=== PATIENT | male | born 1970 | race Caucasian/White ===

== ENCOUNTER 2019-03-21 08:36 | Emergency (ER) | payer OTHER, SELFPAY ==
[2019-03-16 13:28] VITALS: BMI 24.8
[2019-03-21 08:38] VITALS: BP 126/82; PULSE 69; RESP 18; TEMP 36.6; O2SAT 100; BMI 25.2
--- NOTE | 2019-03-21 08:46 | CT_ITS ---
STUDY: CT ABDOMEN AND PELVIS WITH CONTRAST REASON FOR EXAM: Male, 48 years old. Shortness of breath and abdominal pain. RADIATION DOSAGE (If Supplied By Facility): CTDIvol = ( 11.30 ) mGy, DLP = ( 699.59 ) mGycm TECHNIQUE: Transaxial images were obtained from the dome of the diaphragm to the symphysis pubis without oral contrast. IV 100mL Isovue-300 100 was administered. Sagittal and coronal images were reconstructed. Individualized dose optimization techniques were used for this CT. COMPARISON: None. FINDINGS: The visualized lung bases are unremarkable. The visualized portions of the heart are within normal limits. Normal liver. There are surgical clips in the gallbladder fossa consistent with a prior cholecystectomy. Normal spleen. Normal pancreas. Normal bilateral adrenal glands. Normal right kidney. Normal left kidney. The stomach is somewhat distended. There are nonspecific fluid-filled small bowel loops. There is no evidence of bowel obstruction. There is diffuse thickening of the colon extending from the hepatic flexure to the region of the rectum. The appendix is visualized and appears to be within normal limits. Normal abdominal aorta. Normal inferior vena cava. Normal retroperitoneum. Normal urinary bladder. There is a very small umbilical hernia containing fat. There is no demonstrated acute osseous changes. CT/Abdomen/Pelvis W IV Cont ONLY IMPRESSION: 1. Diffuse thickening of the colon extending from the hepatic flexure to the rectum likely due to colitis. 2. Status post cholecystectomy. 3. No evidence of hydronephrosis Electronically Signed: Kristopher Luis MD at 10:41 EDT Tel , Service support ,
--- NOTE | 2019-03-21 08:54 | ED.VIS.GEN ---
History of Present Illness Chief Complaint: Abd Pain Informant: Patient Onset: Today Context: Sudden Onset Timing: Continuous Current Severity: Moderate Maximum Severity: Moderate Narrative: The patient presents to the emergency department abdominal pain. The patient has a history of duodenal ulcer. He underwent endoscopy in September which found this. There was also found to have a hiatal hernia. The patient states that he gets bouts of pain with squeezing in his midepigastric area and he will feel nauseated and have a few bouts of vomiting. He states he did vomit today and it seemed to help, but then the pain came back. He is following with Dr. Rodney. He is actually scheduled to have endoscopy with pH monitoring done next month. He states because of this, he had to stop his omeprazole and feels like it is making his pain worse. He denies any fevers. He denies any chills or sweats. He does have history of prior cholecystectomy but denies any other abdominal surgery. He states he did take 1 Percocet at home today with little improvement. Prior similar symptoms: Yes Recent Illness/Hospitalization: No Past Medical History - Allergies and Home Meds Allergies/Adverse Reactions: Allergies No Known Allergies Allergy (Verified 03/21/19 08:42) Primary Care Physician: Tonny Mcclelland MD [Primary Care Provider] - Prior records reviewed: Yes Surgical History: cholecystectomy Smoking Status: Never smoker Review of Systems General: Denies: Chills, Fever, Sweats Eyes: Denies: Visual changes - bilaterally, Diplopia ENT: Denies: Rhinorrhea, Sore throat Cardiovascular: Denies: Chest pain, Palpitations Respiratory: Denies: Dyspnea, Cough, Dyspnea on exertion Gastrointestinal: Reports: Abdominal pain, Nausea, Vomiting Genitourinary: Denies: Dysuria, Hematuria, Frequency Musculoskeletal: Denies: Back pain, Extremity Pain Skin: Denies: Rash, Wounds Neurological: Denies: Headache, Weakness, Numbness Physical Exam Vital Signs/Narrative: Vital Signs Temp Pulse Resp BP Pulse Ox 03/21/19 08:38 98 F 69 18 126/82 H 100 Inital Vital Signs reviewed: Yes General: Well nourished, Well developed, No Acute Distress Head: Normocephalic, Atraumatic Eyes: Perrl, EOMI ENT: Moist mucous membranes, No rhinorrhea Neck: Supple, Nontender Cardiovascular: Regular rate, Regular rhythm, No murmurs Respiratory: No distress, CTA bilaterally, Chest nontender Abdomen: Soft, Nondistended, Normal bowel sounds, Tender. Negative for: Guarding, Rebound tenderness Back: Nontender, Normal Inspection Extremities: Nontender, No edema Skin: Normal color, No rash Neurological: Alert, Oriented x3, Cranial nerves II-XII grossly intact, Normal Strength, Normal Sensation Psychological: Normal affect, Normal Mood Diagnostic/Tx/Re-eval Clinical Impression(s) from Imaging Studies Abdomen/Pelvis CT 03/21/19 08:46 IMPRESSION: 1. Diffuse thickening of the colon extending from the hepatic flexure to the rectum likely due to colitis. 2. Status post cholecystectomy. 3. No evidence of hydronephrosis Electronically Signed: Kristopher Luis MD at 10:41 EDT Tel , Service support , Abnormal Lab Results 03/21/19 03/21/19 08:55 08:55 WBC 7.8 RBC 4.91 Hgb 15.1 Hct 44.3 MCV 90.2 MCH 30.8 MCHC 34.1 RDW Std Deviation 41.8 RDW Coeff of Hannah 12.7 Plt Count 298 MPV 9.4 Immature Gran % (Auto) 0.300 Neut % (Auto) 67.3 Lymph % (Auto) 21.3 [place] % (Auto) 7.6 Eos % (Auto) 3.0 Baso % (Auto) 0.5 Absolute Neuts (auto) 5.3 Absolute Lymphs (auto) 1.66 Nucleated RBC % 0 Sodium 140 Potassium 4.2 Chloride 108 H Carbon Dioxide 25.0 Anion Gap 7 BUN 10 Creatinine 1.03 Estim Creat Clear Calc 91.38 Est GFR (MDRD) Af Amer 98 Est GFR (MDRD) Non-Af 81 BUN/Creatinine Ratio 9.7 L Glucose 112 H Calcium 9.8 Total Bilirubin 0.60 AST 14 L ALT 18 Alkaline Phosphatase 72 Total Protein 8.3 H Albumin 4.2 Globulin 4.1 Albumin/Globulin Ratio 1.0 Lipase 176 - Medical Decision Making IV was established. The patient was given analgesics and antiemetics. He had marked improvement of his pain and actually total resolution. His labs are unremarkable. His CT imaging shows mild colitis. He has had some constipation and pain with moving his bowels. I do feel that the most prudent thing would be to treat him with Cipro and Flagyl. He is comfortable with this plan of care. He will be given a short course of analgesics and will follow up with Dr. Rodney. He was counseled on concerning symptoms and reasons to return. He will be discharged home. Impression 1. Colitis 2. Left lower quadrant abdominal pain ED Disposition - Plan for ED Patient: Disposition: Home or Assisted Living Instructions: Diverticulitis Prescriptions: Ciprofloxacin [Cipro] 500 mg PO BID #14 tab Prescription Printed metroNIDAZOLE [Flagyl] 500 mg PO Q8H #21 tab Prescription Printed Oxycodone HCl/Acetaminophen [Percocet 5/325] 1 tab PO Q6H PRN PRN 3 Days #12 tab PRN Reason: Pain Prescription Printed Referrals: Tonny Mcclelland MD [Primary Care Provider] -
[2019-03-21] MEDS: Morphine 4 MG/ML Syringe IV (08:56)
[2019-03-21] MEDS: 0.9% Normal Saline 1,000 ML 1000 ML IV (08:56)
[2019-03-21] MEDS: proMETHazine 25 MG/ML Syringe 12.5 MG IV (08:56)
[2019-03-21 09:02] LABS: Absolute Lymphocyte Count 1.66 X10^3/uL (0.83-4.51); Absolute Neutrophil Count 5.3 X10^3/uL (2.0-7.7); Basophil# 0.04 X10^3/uL; Basophil% 0.5 % (0-1); Eosinophil# 0.23 X10^3/uL; Hematocrit 44.3 % (40-54); Hemoglobin 15.1 g/dL (13.0-16.5); Lymphocyte # 1.66 X10^3/ul (4.0); Lymphocyte % 21.3 % (19-41); Mean Corp Hgb Conc 34.1 g/dL (32-36); Mean Corpuscular Hgb 30.8 pg (27.0-32.0); Mean Corpuscular Volume 90.2 fL (80-94); Mean Platelet Vol. 9.4 fl (6.2-12.0); Monocyte# 0.59 X10^3/uL; Monocyte% 7.6 % (0-10); NRBC Flagged by Analyzer 0 % (0-5); Neutrophil # 5.25 X10^3/uL (2.7-7.7); Neutrophil % 67.3 % (47-70); Platelet Count 298 K/mm3 (150-450); RBC Distribution Width CV 12.7 % (11.6-14.6); RBC Distribution Width SD 41.8 fl (35.1-43.9); Red Blood Count 4.91 M/mm3 (4.6-6.2); White Blood Count 7.8 K/mm3 (4.4-11.0)
[2019-03-21 09:17] LABS: AST(SGOT) 14 U/L (15-37); Alanine Aminotransfer ALT/SGPT 18 U/L (16-61); Albumin, Serum 4.2 g/dL (3.2-5.0); Alkaline Phosphatase 72 U/L (45-117); Anion Gap 7 (5-15); BUN 10 mg/dL (7-18); BUN/Creat Ratio 9.7 RATIO (10-20); Calcium,Total 9.8 mg/dL (8.5-10.1); Chloride 108 mmol/L (98-107); Creatinine, Serum 1.03 mg/dL (0.70-1.30); EST Glomerular Filtration Rate 81 mL/min (>60); Est Glom Filt Rate - Afr Amer 98 mL/min (>60); Estimated Creatinine Clearance 91.38 ml/min; Globulin 4.1 g/dL (2.2-4.2); Glucose 112 mg/dL (74-106); Lipase 176 U/L (73-393); Potassium 4.2 mmol/L (3.5-5.1); Protein, Total 8.3 g/dL (6.4-8.2); Sodium Level 140 mmol/L (136-145)
[2019-03-21 10:36] VITALS: BP 135/76; PULSE 62; RESP 16; O2SAT 95
[2019-03-21 11:09] VITALS: BP 133/77; PULSE 54; RESP 14; O2SAT 97
== END 2019-03-21 11:10 | disposition home or self-care (01) ==
LOC: ED 08:57
PROVIDERS: Emergency Provider Emergency Medicine; Family Provider Family Medicine; PCP Family Medicine
DX: K52.9 Noninfective gastroenteritis and colitis, unspecified (principal); R10.32 Left lower quadrant pain; K44.9 Diaphragmatic hernia without obstruction or gangrene; Z87.11 Personal history of peptic ulcer disease; Z90.49 Acquired absence of other specified parts of digestive tract
CPT/HCPCS: 74177; 80053; 83690; 85025; 96361; 96374; 96375; 99285; Q9967

== ENCOUNTER 2019-03-23 05:18 | Observation (INO) | payer OTHER, SELFPAY ==
[2019-03-23] VITALS (17 sets, daily range): BP systolic 86–167; BP diastolic 48–116; PULSE 59–91; RESP 13–28; TEMP 36.3–37.1; O2SAT 92–100; BMI 23.7; BMI 24.0
--- NOTE | 2019-03-23 05:28 | EKG12_ITS ---
Test Reason : ABD PAIN Blood Pressure : / mmHG Vent. Rate : 071 BPM Atrial Rate : 071 BPM P-R Int : 122 ms QRS Dur : 098 ms QT Int : 448 ms P-R-T Axes : 042 068 057 degrees QTc Int : 486 ms Normal sinus rhythm Possible Anterior infarct , age undetermined Abnormal ECG Confirmed by AMILCAR GARDUNO, EMERSON ([id number]), industrial editor JONY HANNA ([id number]) on 03/27/2019 10:27:33 AM Referred By: LILIYA Confirmed By:EMERSON FITZGERALD MD
--- NOTE | 2019-03-23 05:29 | RAD_ITS ---
STUDY: X-RAY CHEST REASON FOR EXAM: Male, 48 years old. Chest pain TECHNIQUE: Single AP portable view of the chest. COMPARISON: None. FINDINGS: The lungs are clear and expanded. There is no demonstrated pleural abnormality. Normal size heart. Normal mediastinum and chris. Normal visualized pulmonary arteries. Normal visualized aortic arch and descending thoracic aorta. Normal visualized thoracic spine. Normal visualized ribs, clavicles, and shoulders. There is no demonstrated abnormality of the visualized soft tissue structures of the upper abdomen. RAD/Chest 1 View (Portable) IMPRESSION: Normal x-ray examination of the chest. Electronically Signed: Jose Cade, at 6:47 EDT Tel , Service support ,
--- NOTE | 2019-03-23 05:33 | ED.VIS.GEN ---
History of Present Illness Chief Complaint: Abd Pain Informant: Patient Onset: Today Context: Sudden Onset Timing: Continuous Current Severity: Severe Maximum Severity: Severe Narrative: Patient is a 48-year-old male with history of GERD and cholecystectomy presenting with acute abdominal pain. Patient was seen in the ER a little over a day ago for similar pain. At that time he was diagnosed with colitis. He was discharged home on antibiotics. Patient states around 3 AM he woke up from sleep with severe abdominal pain. It is diffuse. He has a hard time describing it. Patient states he is thrown up once and also had diarrhea. Feels that he needs to have a bowel movements currently. Patient denies any black or blood in his vomit or his stool. He denies any associated chest pain or difficulty breathing. He states he is in immense pain is having a hard time finding a position of comfort. Patient has a follow-up appointment with Dr. Rodney scheduled for 04/08/2019 Past Medical History - Allergies and Home Meds Allergies/Adverse Reactions: Allergies No Known Allergies Allergy (Verified 03/23/19 05:22) Past Medical History: - - Depression, stomach ulcer Surgical History: cholecystectomy Smoking Status: Current every day smoker Review of Systems All systems negative except as indicated General: Reports: Sweats Gastrointestinal: Reports: Abdominal pain, Nausea, Vomiting, Diarrhea Physical Exam Vital Signs/Narrative: Vital Signs Temp Pulse Resp BP Pulse Ox 03/23/19 05:23 91 97 03/23/19 05:18 97.4 F L 83 28 H 167/96 H 92 Inital Vital Signs reviewed: Yes General: Well nourished, Well developed, Acute Distress - Secondary to pain, patient writhing in the bed Head: Normocephalic, Atraumatic Eyes: Perrl, EOMI ENT: Moist mucous membranes, No rhinorrhea Neck: Supple, Nontender Cardiovascular: Regular rate, Regular rhythm, No murmurs Respiratory: No distress, CTA bilaterally, Chest nontender Abdomen: Soft, Nondistended, No masses, Tender - Diffuse, Hypoactive bowel sounds. Negative for: Guarding, Rebound tenderness Extremities: Nontender, No edema Skin: Normal color, No rash, Diaphoresis Neurological: Alert, Oriented x3, Cranial nerves II-XII grossly intact, Normal Strength, Normal Sensation Psychological: Normal affect, Normal Mood Diagnostic/Tx/Re-eval - Rhythm Strip Rhythm Strip: Sinus Tach Rate: 110 Ectopy: None - EKG Initial EKG Interpretation: Sinus Rhythm, - - Sinus rhythm at a rate of 71 Normal intervals Normal axis No obvious ST segment changes Significant baseline artifact secondary to movement - Medical Decision Making Patient is a 48-year-old male with history of gastric ulcer disease presenting with severe abdominal pain. Patient's abdomen is difficult to examine secondary to his pain and guarding however it is soft. He is not peritoneal however he is concerning for pain out of proportion. Patient is initially tachycardic and tachypneic. He requires multiple doses of IV pain medication just to tolerate EKG and chest x-ray. Lab work shows mild elevated lactic acid as well as a mildly elevated lipase. CBC shows a mildly elevated CBC. All this is quite nonspecific. Patient was recently diagnosed with colitis, 2 days ago, however repeat CT shows no acute abnormality. Patient requires multiple re-doses of pain medication. He was given IV fluids. He finally has some improvement of his tachycardia and tachypnea however abdominal exam is still difficult secondary to pain. Patient does not have any blood in his stool or significant diarrhea. Have a less likely suspicion for C. difficile or mesenteric ischemia. Patient will be admitted for further evaluation of his intractable abdominal pain. Case is discussed with admitting physician, Dr. Paula as well as his surgeon, Dr. Rodney. Patient is agreeable with admission. He is hemodynamically stable at time of disposition. ED Disposition - Plan for ED Patient: Disposition: Acute Care [facility] Diagnosis: Intractable generalized abdominal pain, Elevated lactic acid level, Elevated lipase, Nausea and vomiting
[2019-03-23] MEDS: Ondansetron 4 MG/2 ML Vial IV (05:35)
[2019-03-23] MEDS: HYDROmorphone 1 MG/ML Syringe IV ×2 (05:35→05:56)
[2019-03-23] MEDS: 0.9% Normal Saline 1,000 ML 1000 ML IV (05:35)
--- NOTE | 2019-03-23 05:38 | ED.RN ---
NO OLD EKGS IN MUSE
--- NOTE | 2019-03-23 05:39 | CT_ITS ---
STUDY: CT ABDOMEN AND PELVIS WITHOUT CONTRAST REASON FOR EXAM: Male, 48 years old. Severe lower abdominal pain RADIATION DOSAGE (If Supplied By Facility): CTDIvol = ( 13.22 ) mGy, DLP = ( 1046.76 ) mGycm TECHNIQUE: Transaxial images were obtained from the dome of the diaphragm to the symphysis pubis without oral contrast, and without intravenous contrast. Sagittal and coronal images were reconstructed. Individualized dose optimization techniques were used for this CT. COMPARISON: None. FINDINGS: The visualized lung bases are unremarkable. The visualized portions of the heart are within normal limits. Normal liver. There are surgical clips in the gallbladder fossa consistent with a prior cholecystectomy. Normal spleen. Normal pancreas. Normal bilateral adrenal glands. Normal right kidney. Normal left kidney. Normal visualized stomach. Normal small intestine. Normal colon. The appendix is visualized and appears normal. Normal abdominal aorta. Normal inferior vena cava. Normal retroperitoneum. Normal urinary bladder. Normal abdominal wall. Normal osseous structures. CT/Abdomen/Pelvis W IV Cont ONLY IMPRESSION: Normal unenhanced CT of the abdomen and pelvis. Electronically Signed: Jose Cade, at 7:21 EDT Tel , Service support ,
[2019-03-23 05:51] LABS: Absolute Lymphocyte Count 2.59 X10^3/uL (0.83-4.51); Absolute Neutrophil Count 8.2 X10^3/uL (2.0-7.7); Basophil# 0.09 X10^3/uL; Basophil% 0.8 % (0-1); Eosinophil# 0.24 X10^3/uL; Hematocrit 42.4 % (40-54); Lymphocyte # 2.59 X10^3/ul (4.0); Lymphocyte % 21.8 % (19-41); Mean Corpuscular Hgb 30.2 pg (27.0-32.0); Mean Corpuscular Volume 91.6 fL (80-94); Mean Platelet Vol. 9.7 fl (6.2-12.0); Monocyte# 0.78 X10^3/uL; Monocyte% 6.6 % (0-10); NRBC Flagged by Analyzer 0 % (0-5); Neutrophil # 8.16 X10^3/uL (2.7-7.7); Neutrophil % 68.5 % (47-70); Platelet Count 308 K/mm3 (150-450); RBC Distribution Width CV 12.6 % (11.6-14.6); RBC Distribution Width SD 42.3 fl (35.1-43.9); Red Blood Count 4.63 M/mm3 (4.6-6.2); White Blood Count 11.9 K/mm3 (4.4-11.0)
[2019-03-23] MEDS: fentaNYL 100 MCG/2 ML Ampul 50 MCG IV ×2 (06:13→06:28)
[2019-03-23 06:14] LABS: AST(SGOT) 18 U/L (15-37); Alanine Aminotransfer ALT/SGPT 38 U/L (16-61); Albumin, Serum 4.1 g/dL (3.2-5.0); Alkaline Phosphatase 90 U/L (45-117); Anion Gap 9 (5-15); BUN 11 mg/dL (7-18); BUN/Creat Ratio 9.8 RATIO (10-20); Bilirubin, Direct 0.14 mg/dL (0.00-0.30); Calcium,Total 9.3 mg/dL (8.5-10.1); Chloride 108 mmol/L (98-107); Creatinine, Serum 1.12 mg/dL (0.70-1.30); EST Glomerular Filtration Rate 74 mL/min (>60); Est Glom Filt Rate - Afr Amer 89 mL/min (>60); Estimated Creatinine Clearance 84.04 ml/min; Globulin 3.9 g/dL (2.2-4.2); Glucose 206 mg/dL (74-106); Lipase 622 U/L (73-393); Potassium 3.7 mmol/L (3.5-5.1); Sodium Level 142 mmol/L (136-145)
--- NOTE | 2019-03-23 06:18 | ED.RN ---
DR STEPHENS NOTIFIED OF LACTIC ACID RESULTS
[2019-03-23 06:19] LABS: Lactic Acid 2.8 mmol/L (0.4-2.0)
[2019-03-23] MEDS: Morphine 4 MG/ML Syringe IV (07:20)
[2019-03-23] MEDS: fentaNYL 100 MCG/2 ML Ampul 75 MCG IV (08:14)
[2019-03-23] MEDS: 0.9% Normal Saline 1,000 ML 999 ML IV (08:18)
--- NOTE | 2019-03-23 08:50 | PCM.HP.STD ---
Problem List (1) Intractable generalized abdominal pain Status: Acute (2) Elevated lactic acid level Status: Acute (3) Elevated lipase Status: Acute (4) Nausea and vomiting Status: Acute History of Present Illness Date of Admission: 03/23/19 Chief Complaint: Abdominal pain associated with diarrhea and vomiting The patient is a 48 year old M with a past medical history of abdominal pain for the past 10 to 12 years, cannabis use and peptic ulcer disease who presented to the emergency department at [facility] on 03/23/2019 complaining of severe abdominal pain associated with vomiting and diarrhea that woke him from sleep at 3 AM. When he went to bed he had no complaints. Abdominal pain is worse in the lower abdomen and it radiates to the low back. He tells me that he has had abdominal pain every day for the past 10-12 years and he used to take Percocet but, he was cut off 3 years ago. The vomitus is bilious. Stool has no fecal leukocytes and is negative for blood. C. difficile is negative. He was also seen in the ED on 03/21/[address] Holt. At that time he c/o a hx of duodenal ulcer. Today he tells me he does not know where the ulcer was on EGD done in [place] [address] Jackson. He also tells me that he had a colonoscopy and he does not know the results. He told Dr. Rodney he had a esophageal ulcer. There is no FH of IBD. Mother from pancreatic Cancer but also had colon CA. He denies any illicit drug use other than marijuana. Tells me that he doses not like to take narcotics. Denies Meth. Admitted to using cocaine many years ago. Vital signs at presentation to the emergency department were temperature 97.4, pulse rate 83, blood pressure 167/96, respiratory rate 28 and he was 92 to 100% saturated on room air. White blood cell count was mildly increased at 11.9 but the differential was within normal limits. Hemoglobin and platelets were normal. PT and PTT were normal. BMP was unremarkable. Random glucose was 206 but the hemoglobin A1c is 5.3. Lactic acid was 2.8 but the recheck was 2.0. LFTs were unremarkable. Amylase was mildly increased at 121 but a recheck a few hours later was normal at 64. Triglycerides are 40. Lipase was 622 and he denies any history of chronic pancreatitis. He also denies any EtOH use. CT scan of the abdomen and pelvis was done and although it says unenhanced I was assured by the certified surgical technologist that he did receive IV contrast only. The CT scan was normal. When he eats dairy or bread then he gets increased abdominal pain and bloating. He still eats rye bread which he states he tolerates OK. He ate cheese yesterday. Past Medical History Medical History: Medical History (Last Reviewed 03/23/19 @ 20:13 by Liliana Paula DO) Abdominal pain R10.9 Arthritis M19.90 Asthma J45.909 Depression with anxiety F41.8 History of back problems Stomach ulcer K25.9 Weight loss R63.4 Allergies No Known Allergies Allergy (Verified 03/23/19 05:22) Home Medications: Ambulatory Orders Medication Instructions Recorded bupropion HCl SR 150 mg tablet,12 300 mg PO DAILY 03/16/19 hr sustained-release escitalopram 10 mg tablet 10 mg PO DAILY 03/16/19 hyoscyamine sulfate 0.125 mg tablet 0.125 mg PO DAILY PRN tab 03/16/19 loratadine 10 mg tablet 10 mg PO DAILY 03/16/19 trazodone 100 mg tablet 100 mg PO DAILY 03/16/19 Ciprofloxacin [Cipro] 500 mg PO BID #14 tab 03/21/19 Oxycodone HCl/Acetaminophen 1 tab PO Q6H PRN PRN 3 Days #12 tab 03/21/19 [Percocet 5/325] Surgical History: Surgical History (Last Reviewed 03/23/19 @ 20:13 by Liliana Paula DO) History of laparoscopic cholecystectomy Z90.49 Surgical History: cholecystectomy Psychiatric History: Depression - on Wellbutrin Lives: Spouse/ Significant Other Smoking Status: Current every day smoker Tobacco Use: - - Marijuana Alcohol: None - except the moonshine that is in the cough syrup he makes Drugs: Marijuana - *Family History Maternal Family History: Family History (Last Reviewed 03/23/19 @ 20:14 by Liliana Paula DO) Mother Asthma Colon cancer Diabetes Hypertension Thyroid disorder Grandfather Colon cancer Father Diabetes Hypertension History Items: Cancer - his mother had both colon and pancreatitic CA Paternal Family History: Family History (Last Reviewed 03/23/19 @ 20:14 by Liliana Paula DO) Mother Asthma Colon cancer Diabetes Hypertension Thyroid disorder Grandfather Colon cancer Father Diabetes Hypertension Review of Systems Constitutional: Denies: Anorexia, Chills, Fever, Night Sweats, Weakness Eyes: Denies: Blurred vision HEENT: Denies: Head Aches, Sinus Congestion, Sinus Drainage Cardiovascular: Denies: Chest Pain, Edema, Light Headedness, Palpitations Respiratory: Denies: Cough, Shortness of breath at rest, Shortness of breath upon exertion, Sputum production Gastrointestinal: Reports: Abdominal Pain - mostly in the lower abdomen, Nausea, Vomiting Genitourinary: Denies: Dysuria, Frequency, Hesitancy Musculoskeletal: Reports: Back Pain - inassociation with the abd pain. Denies: Joint Pain, Joint Tenderness Skin: Denies: Rash, Wounds Neurological: Denies: Numbness, Tingling, Focal weakness Psychiatric: Reports: Anxiety, Depression. Denies: Homicidal Ideations, Suicidal Ideations Endocrine: Reports: Change in Body Habitus - he has lost about 20 lbs over the past year due to eating a better diet and trying elimination diet to try and figure out why he has abdominal pain. Denies: Heat/ Cold Intolerance Hematologic/ Lymphatic: Denies: Easy Bruising, Easy Bleeding, Hx of blood clot VTE Information - Inpt Only VTE Present on Admission: No VTE Mechan Device Prophylaxis: SCD's, Knee High DEANDRE Hose VTE Pharm Prophylaxis ordered?: Yes Patient Problems: Active and Suspected Problems (Last Reviewed 03/23/19 @ 20:13 by Liliana Paula DO) Intractable generalized abdominal pain (Acute) Elevated lactic acid level (Acute) Elevated lipase (Acute) Nausea and vomiting (Acute) - Physical Exam General: Alert, Oriented x3, Cooperative, - - he is appears to be in severe pain....he is restless and moving all over the bed. He periodically draw his knees up to his chest and he is moaning constantly. HEENT: Atraumatic, PERRLA, EOMI, Normocephalic Oral: Dry Mucosa Neck: Supple, No JVD, Negative Carotid Bruits, No Nodes, Trachea Midline Lungs: Clear to auscultation, Normal air movement Cardiovascular: Regular rate, Regular Rhythm, Normal S1, Normal S2, No murmurs, No rub noted, No Gallop Abdomen: Soft, Hypoactive Bowel Sounds, Tender - diffusely tender to palpation in the lower abdomen but, his abd is soft. He tells me the pain increases with palpation but, he does not guard. Extremities: No clubbing, No cyanosis, No edema, Capillary Refill Less than 3 Seconds, No Calf Tenderness, Peripheral Pulses Normal, - - he has soft bruits over both femoral arteries. No abd bruits. Skin: No rashes, No breakdown Musculoskeletal: No Tenderness to Palpation of Joints or Extremities, No Muscle Wasting Neurological: Cranial nerves II-XII grossly intact, Neuro grossly intact Psych/Mental Status: Appropriate, Anxious - crying, tells me he is afraid. Vital Signs Temp Pulse Resp BP Pulse Ox 97.4 F L 69 17 151/66 H 99 03/23/19 05:18 03/23/19 08:00 03/23/19 08:00 03/23/19 08:00 03/23/19 08:00 Oxygen Delivery Method Room Air Weight: 173 lb 11.588 oz Body Mass Index (BMI) 23.7 Intake and Output for Last 24 Hours 03/21/19 03/22/19 03/23/19 23:59 23:59 23:59 Intake Total 1000 / 1000 Balance 1000 / 1000 Microbiology Past 72 Hours 03/23/19 05:42 C. difficile DNA Amplification - Final Stool 03/23/19 05:35 Stool Occult Blood (MILLIE) - Final Stool 03/23/19 05:42 Stool Lactoferrin - Final Stool Laboratory Tests Past 24 Hrs 03/23/19 03/23/19 03/23/19 05:35 05:35 05:35 WBC 11.9 H RBC 4.63 Hgb 14.0 Hct 42.4 MCV 91.6 MCH 30.2 MCHC 33.0 RDW Std Deviation 42.3 RDW Coeff of Hannah 12.6 Plt Count 308 MPV 9.7 Immature Gran % (Auto) 0.300 Neut % (Auto) 68.5 Lymph % (Auto) 21.8 [place] % (Auto) 6.6 Eos % (Auto) 2.0 Baso % (Auto) 0.8 Absolute Neuts (auto) 8.2 H Absolute Lymphs (auto) 2.59 Nucleated RBC % 0 Sodium 142 Potassium 3.7 Chloride 108 H Carbon Dioxide 25.0 Anion Gap 9 BUN 11 Creatinine 1.12 Estim Creat Clear Calc 84.04 Est GFR (MDRD) Af Amer 89 Est GFR (MDRD) Non-Af 74 BUN/Creatinine Ratio 9.8 L Glucose 206 H Lactic Acid 2.8 H Calcium 9.3 Total Bilirubin 0.60 Direct Bilirubin 0.14 AST 18 ALT 38 Alkaline Phosphatase 90 Troponin I < 0.015 Total Protein 8.0 Albumin 4.1 Globulin 3.9 Amylase Lipase 622 H 03/23/19 05:35 WBC RBC Hgb Hct MCV MCH MCHC RDW Std Deviation RDW Coeff of Hannah Plt Count MPV Immature Gran % (Auto) Neut % (Auto) Lymph % (Auto) [place] % (Auto) Eos % (Auto) Baso % (Auto) Absolute Neuts (auto) Absolute Lymphs (auto) Nucleated RBC % Sodium Potassium Chloride Carbon Dioxide Anion Gap BUN Creatinine Estim Creat Clear Calc Est GFR (MDRD) Af Amer Est GFR (MDRD) Non-Af BUN/Creatinine Ratio Glucose Lactic Acid Calcium Total Bilirubin Direct Bilirubin AST ALT Alkaline Phosphatase Troponin I Total Protein Albumin Globulin Amylase Pending Lipase Assessment/Plan All Active Problems (Last Reviewed 03/23/19 @ 20:13 by Liliana Paula DO) Intractable generalized abdominal pain (Acute) Elevated lactic acid level (Acute) Elevated lipase (Acute) Nausea and vomiting (Acute) Impressions 1. severe abdominal pain associated with nausea and emesis on chronic abdominal pain for 10-12 years. Previously on Percocet but, cut off 3 years ago. No physical or lab abnormalities to support this degree of pain. Dr. Rodney has been consulted. 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 ? overlyng mental health disorder? possible ischemic bowel? Gluten sensitive enteropathy? lactose intolerance? no evidenc on the CT of the abdomen for IBD. IBS? W/U in progress. Porphyria? 2. Lactic acidosis - suspect due to dehydration from the vomiting. Vomitus has the appearance of bile. Has had a cholecystectomy in the past. 3. daily marijuana use. 4. elevated lipase is most likely due to vomiting and not to acute pancreatitis. The pancreas appears normal on the CT scan. check TRIG 5. hyperglycemia - likely due to stress. HGBA1C is normal 6. BL femoral bruits - no sx of claudication 7. ? 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 Await Dr. Ronel's consult. Code Visit Inpatient E&M: 58602 Init Hosp L3
--- NOTE | 2019-03-23 08:52 | CON.PCM_ITS ---
Problem List (1) Intractable generalized abdominal pain Status: Acute (2) Elevated lactic acid level Status: Acute (3) Elevated lipase Status: Acute (4) Nausea and vomiting Status: Acute Reason for Consult Date of Consultation: 03/23/19 History of Present Illness: The patient is a 48 year old M who presented with a 2 day history of worsening abdominal pain. Patient stated he was evaluated by Dr. Rodney last Saturday for a follow-up EGD. Patient has a history of peptic ulcer disease for which he had an upper scope last September. A 1 cm ulcer was found per patient in his esophagus. Patient was placed on omeprazole and has been taking this regularly since that procedure. Patient was told to stop the medication which he did last Saturday in preparation for a scheduled EGD with pH probe. Patient states since that time he has developed this abdominal pain. He also noted nausea and vomiting which has been intermittent for the last 10 years. Patient has noted an increase in diarrhea over the last 3 days. He was evaluated in the ED on 02/19/19. A CT scan of the ab/pel was obtained which demonstrated colitis. He was placed on Cipro and Flagyl and given narcotic pain medication and discharged to home. Patient had a repeat CT scan of the ab/pel which demonstrated unremarkable imaging. Patient does utilize illicit drugs daily. Past Medical History Medical History: Medical History (Last Reviewed 03/23/19 @ 10:06 by Michelle Rock PA-C) Abdominal pain R10.9 Arthritis M19.90 Asthma J45.909 Depression with anxiety F41.8 History of back problems Stomach ulcer K25.9 Weight loss R63.4 Allergies No Known Allergies Allergy (Verified 03/23/19 05:22) Home Medications: Ambulatory Orders Medication Instructions Recorded bupropion HCl SR 150 mg tablet,12 300 mg PO DAILY 03/16/19 hr sustained-release escitalopram 10 mg tablet 10 mg PO DAILY 03/16/19 hyoscyamine sulfate 0.125 mg tablet 0.125 mg PO DAILY tab 03/16/19 loratadine 10 mg tablet 10 mg PO DAILY 03/16/19 omeprazole 20 mg capsule,delayed 20 mg PO DAILY 03/16/19 release trazodone 100 mg tablet 100 mg PO DAILY 03/16/19 Ciprofloxacin [Cipro] 500 mg PO BID #14 tab 03/21/19 Oxycodone HCl/Acetaminophen 1 tab PO Q6H PRN PRN 3 Days #12 tab 03/21/19 [Percocet 5/325] metroNIDAZOLE [Flagyl] 500 mg PO Q8H #21 tab 03/21/19 Surgical History: Surgical History (Last Reviewed 03/23/19 @ 10:06 by Michelle Rock PA-C) History of laparoscopic cholecystectomy Z90.49 Surgical History: cholecystectomy, - - All top teeth surgically removed Psychiatric History: No pertinent psych hx Smoking Status: Current every day smoker Tobacco Use: Cigarettes Drugs: Marijuana - daily - *Family History Maternal Family History: Family History (Last Reviewed 03/23/19 @ 10:07 by Michelle Rock PA-C) Mother Asthma Colon cancer Diabetes Hypertension Thyroid disorder Grandfather Colon cancer Father Diabetes Hypertension Paternal Family History: Family History (Last Reviewed 03/23/19 @ 10:07 by Michelle Rock PA-C) Mother Asthma Colon cancer Diabetes Hypertension Thyroid disorder Grandfather Colon cancer Father Diabetes Hypertension Review of Systems Constitutional: Reports: Anorexia HEENT: Denies: Head Aches, Sinus Congestion, Sinus Drainage Cardiovascular: Denies: Chest Pain, Palpitations Respiratory: Denies: Cough, Shortness of breath at rest, Sputum production Gastrointestinal: Reports: Abdominal Pain, Diarrhea, Nausea, Vomiting Genitourinary: Denies: Dysuria Musculoskeletal: Denies: Joint Pain, Joint Tenderness Skin: Denies: Rash, Wounds Neurological: Denies: Numbness, Tingling, Focal weakness Psychiatric: Denies: Anxiety, Depression, Homicidal Ideations, Suicidal Ideations Hematologic/ Lymphatic: Denies: Easy Bruising, Easy Bleeding Patient Problems: Active and Suspected Problems (Last Reviewed 03/19/19 @ 11:23 by Bk Rodney MD) Intractable generalized abdominal pain (Acute) Elevated lactic acid level (Acute) Elevated lipase (Acute) Nausea and vomiting (Acute) - Physical Exam General: Alert, Oriented x3, Cooperative HEENT: Atraumatic, PERRLA, EOMI, Normocephalic Neck: Supple, No JVD, Negative Carotid Bruits Lungs: Clear to auscultation, Normal air movement Cardiovascular: Regular rate, No murmurs Abdomen: Hypoactive Bowel Sounds, Tender - Severe, generalized, - - Pain out of proportion Extremities: No edema, Capillary Refill Less than 3 Seconds Skin: No rashes, No breakdown Musculoskeletal: No Tenderness to Palpation of Joints or Extremities Neurological: Neuro grossly intact Psych/Mental Status: Normal Affect, Appropriate Vital Signs Temp Pulse Resp BP Pulse Ox 97.4 F L 69 17 151/66 H 99 03/23/19 05:18 03/23/19 08:00 03/23/19 08:00 03/23/19 08:00 03/23/19 08:00 Oxygen Delivery Method Room Air Weight: 173 lb 11.588 oz Body Mass Index (BMI) 23.7 Intake and Output for Last 24 Hours 03/21/19 03/22/19 03/23/19 23:59 23:59 23:59 Intake Total 1000 / 1000 Balance 1000 / 1000 Microbiology Past 72 Hours 03/23/19 05:42 C. difficile DNA Amplification - Final Stool 03/23/19 05:35 Stool Occult Blood (MILLIE) - Final Stool 03/23/19 05:42 Stool Lactoferrin - Final Stool Laboratory Tests Past 24 Hrs 03/23/19 03/23/19 03/23/19 05:35 05:35 05:35 WBC 11.9 H RBC 4.63 Hgb 14.0 Hct 42.4 MCV 91.6 MCH 30.2 MCHC 33.0 RDW Std Deviation 42.3 RDW Coeff of Hannah 12.6 Plt Count 308 MPV 9.7 Immature Gran % (Auto) 0.300 Neut % (Auto) 68.5 Lymph % (Auto) 21.8 [place] % (Auto) 6.6 Eos % (Auto) 2.0 Baso % (Auto) 0.8 Absolute Neuts (auto) 8.2 H Absolute Lymphs (auto) 2.59 Nucleated RBC % 0 Sodium 142 Potassium 3.7 Chloride 108 H Carbon Dioxide 25.0 Anion Gap 9 BUN 11 Creatinine 1.12 Estim Creat Clear Calc 84.04 Est GFR (MDRD) Af Amer 89 Est GFR (MDRD) Non-Af 74 BUN/Creatinine Ratio 9.8 L Glucose 206 H Lactic Acid 2.8 H Calcium 9.3 Total Bilirubin 0.60 Direct Bilirubin 0.14 AST 18 ALT 38 Alkaline Phosphatase 90 Troponin I < 0.015 Total Protein 8.0 Albumin 4.1 Globulin 3.9 Amylase Lipase 622 H 03/23/19 05:35 WBC RBC Hgb Hct MCV MCH MCHC RDW Std Deviation RDW Coeff of Hannah Plt Count MPV Immature Gran % (Auto) Neut % (Auto) Lymph % (Auto) [place] % (Auto) Eos % (Auto) Baso % (Auto) Absolute Neuts (auto) Absolute Lymphs (auto) Nucleated RBC % Sodium Potassium Chloride Carbon Dioxide Anion Gap BUN Creatinine Estim Creat Clear Calc Est GFR (MDRD) Af Amer Est GFR (MDRD) Non-Af BUN/Creatinine Ratio Glucose Lactic Acid Calcium Total Bilirubin Direct Bilirubin AST ALT Alkaline Phosphatase Troponin I Total Protein Albumin Globulin Amylase Pending Lipase Assessment/Plan All Active Problems (Last Reviewed 03/19/19 @ 11:23 by Bk Rodney MD) Intractable generalized abdominal pain (Acute) Elevated lactic acid level (Acute) Elevated lipase (Acute) Nausea and vomiting (Acute) I have been consulted in conjunction with Dr. Rodney. Impression: Severe abdominal pain. Plan: I have discussed this patient with Dr. Rodney. Dr. Rodney will plan to perform an upper scope with possible biopsies. Procedure details, risks and benefits have been explained the procedure. Patient and his family have had the opportunity to ask and have questions answered. Patient verbally understands and agrees with the plan. Dr. Rodney will plan to perform an upper scope today. Thank you for allowing us to participate in this patient's care. Code Visit Office Visits / Consults: [id number] IP Consult L3
[2019-03-23 08:57] LABS: Amylase 121 U/L (25-115)
[2019-03-23 09:22] LABS: Prothrombin Time (Protime)PT. 12.7 SECONDS (11.7-14.9)
[2019-03-23 09:23] LABS: Partial Thromboplast Time 28.6 Seconds (24.1-36.2)
[2019-03-23 09:27] LABS: Erythrocyte Sedimentation Rate 19 mm/hr (0-20)
--- NOTE | 2019-03-23 09:43 | OP.ENDO_ITS ---
03/23/2019 Tonny Mcclelland Md Re : Upper GI endoscopy procedure for Lamar Ashraf Stas This procedure was performed on Saturday, March 23, 2019. My impressions and recommendations are as follows: Impressions : - Normal esophagus. No specimens collected. - Erythematous mucosa in the prepyloric region of the stomach. Biopsied. - Normal examined duodenum. No specimens collected. Recommendations : - Await pathology results. - Repeat upper endoscopy at appointment to be scheduled for surveillance. - Return patient to hospital [facility] for ongoing care. - Clear liquid diet today. - Continue present medications. - Await pathology results. My findings are described in the full procedure note, which is enclosed. If I can be of further assistance, please feel free to contact me at Doctor phone number(s): , Fax: [phone], Work: . Sincerely, MD Bk Bernardo MD 03/23/2019 9:43:18 AM This report has been signed electronically.
[2019-03-23] MEDS: 0.9% Normal Saline 1,000 ML 250 ML IV (09:45)
[2019-03-23 09:47] LABS: Reflex Lactate? Y
[2019-03-23 09:48] LABS: Hemoglobin A1c 5.3 % (4.2-6.3)
--- NOTE | 2019-03-23 09:50 | EGD_PTH ---
PATIENT: MELA ARRINGTON LOC: MS3 U#:[id number] AGE/SX: 48/M ROOM: MS314 RE03/23/[address]: Dr. Liliana Paula DO : 1970 BED: 1 DIS: 03/26/2019 SPEC #: [id number] RECD: 03/23/19 10:11 STATUS: LESTER DUVALL #: [id number] LINA: 03/23/19 09:[address]: Bk Rodney DEPT: SURGICAL PATHOLOGY RECD BY: Harini Carter ENTERED: 03/23/19 10:38 SP TYPE: EGD BIOPSY OTHR DR: DO Dr. Tonny Lomeli MD Tissues: Gastric mucous membrane Procedures: Surgery Specimen Level IV HEADER OPERATION: [place] [place] DIAGNOSIS: Severe abdominal pain, ulcer TISSUE SUBMITTED: Antral biopsy for histo and H. pylori MICROSCOPIC DIAGNOSIS Antral biopsy: Mild gastritis. See microscopic description and comment. KEMAL:vipin 03/24/19 COMMENT The results of immunohistochemistry for Helicobacter pylori will be reported separately ([id number]). MICROSCOPIC DESCRIPTION Slides are reviewed. The specimen shows fragments of gastric mucosa with chronic inflammatory cell infiltrates in the lamina propria consisting of lymphocytes and plasma cells, consistent with mild chronic gastritis. GROSS DESCRIPTION Received in fixative is one container labeled with the patient's name and designated antral biopsy. The specimen consists of one irregular fragment of light corona soft tissue that measures 0.3 x 0.3 x 0.1 cm. The specimen is totally submitted in one cassette. / KEMAL:vipin 03/23/19 TC:3 CPT: 76300
--- NOTE | 2019-03-23 09:50 | IMM_PTH ---
PATIENT: MELA ARRINGTON LOC: MS3 U#:[id number] AGE/SX: 48/M ROOM: PR314 RE03/23/[address]: Dr. Liliana Paula DO : 1970 BED: 1 DIS: 03/26/2019 SPEC #: [id number] RECD: 03/23/19 11:05 STATUS: LESTER REQ #: [id number] LINA: 03/23/19 09:[address]: Bk Rodney DEPT: IMMUNOHISTOCHEMISTRY RECD BY: Concha Garcia ENTERED: 03/23/19 11:06 SP TYPE: IMMUNO OTHR DR: DO Dr. Tonny Lomeli MD Tissues: Stomach, NOS Procedures: H Pylori (initial) PHYSICIAN [facility] INSTIT[facility] [address] [address] SPECIMEN INFORMATION: Tissue Source: Antral biopsy Clinical Info: Severe abdomen pain; ulcer Specimen Number: [id number] CPT code: 63673 METHODOLOGY: Deparaffinized sections of prefer/formalin-fixed tissue or PAP/DQ stained slides are incubated with monoclonal/polyclonal antibodies/oligonucleotide probes. Localization is made via biotin free immunoperoxidase method. Appropriate controls are performed and reacted as expected. Results on target cell population are indicated in the following table: RESULTS: ANTIBODY / CLONE RESULT H Pylori (polyclonal) negative These tests were developed and their performance characteristics determined by [facility]. They may not have been cleared or approved by the U.S. Food and Drug Administration. The FDA has determined that such clearance or approval is not necessary. INTERPRETATION: Antral biopsy: Negative for Helicobacter pylori organisms. KEMAL:vipin 03/24/19
--- NOTE | 2019-03-23 10:04 | PCA ---
Called doctor carlos office and they will be faxing us the medical records for this patient soon
[2019-03-23] MEDS: 0.9% Saline Lock 10 ML Syringe IV ×2 (11:00→12:30)
[2019-03-23 11:52] LABS: Amylase 64 U/L (25-115); CRP < 2.90 mg/L (0.0-3.0); Magnesium 2.1 mg/dL (1.6-2.6); Phosphorus 1.5 mg/dL (2.5-4.9); Triglycerides 40 mg/dL
--- NOTE | 2019-03-23 12:01 | NURSING ---
bladder scan completed per [id number]. pt reports he feels he needs to urinate but will in a little while. When pt returned from EGD- alert and oriented and states he has no pain. He reports that they must have taken whatever it was out. Notified by family that he found nothing wrong and took a few samples. Patient then notified girlfriend that she needed to call his shovel operator to notify them that he is here. Girlfriend took cell phone into hallway to contact shovel operator. At one point court was mentioned but details were not given. Dr. Paula notified of pt comments and current status- notified to not continue with [employer] pump at this time. Notified that pain 0/10 and that pt reported nausea, dizziness and disorientation when took flagyl at home. Also of repeat amylase WNL at 64. Pt asked this RN if he will be allowed to stay overnight- notified that it appears that way currently. Pt nodded head. Obtained 2nd IV site d/t IVF, protonix and possible [employer] pump. Pt agitated that he is NPO and angry.
[2019-03-23] MEDS: Lactated Ringers 1,000 ML 100 ML IV ×2 (15:02→23:16)
[2019-03-23 17:54] LABS: Mucous, Urine 0 SEEN /hpf (<or=2+); Red Blood Cells-Urine 0 SEEN /hpf (0-5); Squamous Epithelial Cells - UA 0 SEEN /hpf (0-5)
[2019-03-23 17:59] LABS: Color, Urine Yellow (Yellow); Glucose, Dipstick Normal (Normal); Ketone-Dipstick 50 mg/dl (Negative); Leukocyte Esterase-Dipstick 25 /ul (Negative); Nitrite-Dipstick Negative (Negative); Occult Blood-Urine Negative /ul (Negative); Protein-Dipstick Negative (Negative); Urine Bilirubin Dipstick Negative (Negative); Urine Clarity Clear (Clear); Urine Urobilinogen Normal (Normal)
[2019-03-23 18:15] LABS: Bacteria RARE /hpf (None Seen); White Blood Cells 0-5 SEEN /hpf (0-5)
[2019-03-23 18:28] LABS: Amphetamine Urine VISTA NEGATIVE (<1000 ng/mL); Barbiturate Urine VISTA NEGATIVE (< 200 ng/mL); Benzodiazepine Urine VISTA POSITIVE (< 200 ng/mL); Cocaine Urine VISTA NEGATIVE (< 300 ng/mL); Ecstacy Urine VISTA POSITIVE (< 500 ng/mL); Methadone Urine VISTA NEGATIVE (< 300 ng/mL); PCP Urine VISTA NEGATIVE (< 25 ng/mL); THC Urine VISTA POSITIVE (< 50 ng/mL); Vista UDS pH Range 6
[2019-03-23] MEDS: oxyCODONE 5 MG Tablet 10 MG PO (19:54)
[2019-03-23] MEDS: Pantoprazole Sodium 40 MG Tablet PO (22:04)
[2019-03-23] MEDS: Senna/Docusate Sodium 1 Tablet 2 TABLET PO (22:04)
[2019-03-24] VITALS (7 sets, daily range): BP systolic 113–150; BP diastolic 64–84; PULSE 52–64; RESP 14–18; TEMP 36.5–37; O2SAT 92–100
[2019-03-24] MEDS: 0.9% Saline Lock 10 ML Syringe IV ×3 (00:03→15:48)
[2019-03-24] MEDS: Acetaminophen 500 MG Tablet 1000 MG PO ×2 (03:16→19:49)
--- NOTE | 2019-03-24 05:30 | CT_ITS ---
STUDY: CTA OF THE ABDOMINAL AORTA REASON FOR EXAM: Male, 48 years old. SEVERE INTERMITTENT ABD PAIN WITH FEMORAL BRUIT RADIATION DOSAGE (If Supplied By Facility): CTDIvol = ( 21.46 ) mGy, DLP = ( 800.32 ) mGycm TECHNIQUE: Axial CT angiography multi-detector data acquisition was obtained from the to the following intravenous administration of 100 ml of Isovue 370 contrast. Axial images and MIP images were reconstructed from the axial data set. Post-processing of the angiographic images was performed, with multiplanar reformation and 3D reconstruction. Individualized dose optimization techniques were used for this CT. TECHNICAL QUALITY: Good COMPARISON: None. Descriptors of Narrowing: None (0%) Mild (< 50%) Moderate (50-70%) Severe (70-90%) Subtotal/Total Occlusion (90-100%) Non-Evaluable (technically non-diagnostic FINDINGS: Abdominal aorta: No demonstrated narrowing. Celiac and superior mesenteric arteries: No demonstrated narrowing. Inferior mesenteric artery: No demonstrated narrowing. Right renal artery(arteries): No demonstrated narrowing. Left renal artery(arteries): No demonstrated narrowing. Right common iliac artery: No demonstrated narrowing. Right external iliac artery: No demonstrated narrowing. Right internal iliac artery: No demonstrated narrowing. Left common iliac artery: No demonstrated narrowing. Left external iliac artery: No demonstrated narrowing. Left internal iliac artery: No demonstrated narrowing. The visualized lung bases are unremarkable. The visualized portions of the heart are within normal limits. Normal liver. Normal gallbladder and extrahepatic biliary system. Normal spleen. Normal pancreas. Normal bilateral adrenal glands. Normal right kidney. Normal left kidney. Normal visualized stomach. Normal small intestine. Normal colon. There is a tubular, thick-walled appendix (>7mm), without significant fat stranding may represent a normal variation. Clinical correlation may be warranted to exclude appendicitis. Normal abdominal aorta. Normal inferior vena cava. Normal retroperitoneum. Normal urinary bladder. Normal abdominal wall. Normal osseous structures. CT/CT ANGIO ABD&PEL W/O&W/DYE IMPRESSION: Normal abdominal aorta and bilateral lower extremity run-off without a hemodynamically significant stenosis. There is a tubular, thick-walled appendix (>7mm), without significant fat stranding may represent a normal variation. Clinical correlation may be warranted to exclude appendicitis. Electronically Signed: Jose Cade, at 8:22 EDT Tel , Service support ,
[2019-03-24] MEDS: oxyCODONE 5 MG Tablet 10 MG PO ×4 (06:00→22:48)
[2019-03-24 06:34] LABS: Absolute Lymphocyte Count 2.48 X10^3/uL (0.83-4.51); Absolute Neutrophil Count 7.7 X10^3/uL (2.0-7.7); Basophil# 0.05 X10^3/uL; Basophil% 0.5 % (0-1); Eosinophil# 0.04 X10^3/uL; Eosinophils% 0.4 % (0-5); Hematocrit 35.9 % (40-54); Hemoglobin 11.8 g/dL (13.0-16.5); Lymphocyte # 2.48 X10^3/ul (4.0); Lymphocyte % 22.5 % (19-41); Mean Corp Hgb Conc 32.9 g/dL (32-36); Mean Corpuscular Hgb 30.6 pg (27.0-32.0); Mean Corpuscular Volume 93.2 fL (80-94); Mean Platelet Vol. 10.2 fl (6.2-12.0); Monocyte# 0.74 X10^3/uL; Monocyte% 6.7 % (0-10); NRBC Flagged by Analyzer 0 % (0-5); Neutrophil # 7.69 X10^3/uL (2.7-7.7); Neutrophil % 69.5 % (47-70); Platelet Count 242 K/mm3 (150-450); RBC Distribution Width CV 13.3 % (11.6-14.6); RBC Distribution Width SD 45.3 fl (35.1-43.9); Red Blood Count 3.85 M/mm3 (4.6-6.2)
[2019-03-24 06:58] LABS: Anion Gap 5 (5-15); BUN 9 mg/dL (7-18); BUN/Creat Ratio 10.5 RATIO (10-20); Calcium,Total 8.1 mg/dL (8.5-10.1); Chloride 108 mmol/L (98-107); Cholesterol 158 mg/dL (200); Creatinine, Serum 0.86 mg/dL (0.70-1.30); EST Glomerular Filtration Rate 100 mL/min (>60); Est Glom Filt Rate - Afr Amer 121 mL/min (>60); Estimated Creatinine Clearance 109.45 ml/min; Glucose 120 mg/dL (74-106); High Density Lipoprotein 46 mg/dL; Magnesium 1.9 mg/dL (1.6-2.6); Phosphorus 1.8 mg/dL (2.5-4.9); Potassium 3.3 mmol/L (3.5-5.1); Sodium Level 139 mmol/L (136-145); Triglycerides 81 mg/dL; Very Low Density Lipoprotein 16 mg/dL (5-40)
--- NOTE | 2019-03-24 07:42 | PCM.PN.SRG ---
Patient Problems: Active and Suspected Problems (Last Reviewed 03/23/19 @ 20:13 by Liliana Paula DO) Intractable generalized abdominal pain (Acute) Elevated lactic acid level (Acute) Elevated lipase (Acute) Nausea and vomiting (Acute) Subjective: Patient evaluated resting comfortably in bed. He states very minimal amount of LLQ discomfort just adjacent to the umbilicus. Patient denies nausea, vomiting. he notes the pain he was experiencing yesterday has greatly improved. He notes positive flatus. Negative BM. - Physical Exam Vitals/I&O's: Vital Signs Temp Pulse Resp BP Pulse Ox 98.5 F 64 18 123/72 H 99 03/24/19 03:15 03/24/19 03:15 03/24/19 03:15 03/24/19 03:15 03/24/19 03:15 Oxygen Flow Rate (L/min) 2 Oxygen Delivery Method Room Air Weight: 172 lb 6.424 oz Body Mass Index (BMI) 24.0 Intake and Output for Last 24 Hours 03/22/19 03/23/19 03/24/19 23:59 23:59 23:59 Intake Total 5211.6633 / 5211.6633 806.67 / 806.67 Output Total 100 / 100 Balance 5111.6633 / 5111.6633 806.67 / 806.67 General: Alert, Oriented x3, Cooperative Abdomen: Soft, Non-Distended, Tender - Minimal tenderness LLQ Microbiology Past 72 Hours 03/23/19 05:42 Stool Enteric Bacteriology - Final 03/23/19 05:42 Stool C. difficile DNA Amplification - Final 03/23/19 05:35 Stool Stool Occult Blood (MILLIE) - Final 03/23/19 05:42 Stool Stool Lactoferrin - Final Laboratory Results 03/23/19 05:35: Amylase 121 H 03/23/19 05:35: ESR 19 03/23/19 05:35: Hemoglobin A1c 5.3 03/23/19 05:35: PT 12.7, INR 1.0, APTT 28.6 03/23/19 11:12: Phosphorus 1.5 L, Magnesium 2.1, C-React Prot Ext Range < 2.90, Triglycerides 40, Amylase 64 03/23/19 11:12: Endomysial IgA Ab Pending 03/23/19 11:12: Lactic Acid 2.0 03/23/19 17:40: Urine Color Yellow, Urine Clarity Clear, Urine pH 7.0, Ur Specific [place] 1.010, Urine Protein Negative, Urine Glucose (UA) Normal, Urine Ketones 50 H, Urine Occult Blood Negative, Urine Nitrite Negative, Urine Bilirubin Negative, Urine Urobilinogen Normal, Ur Leukocyte Esterase 25 H, Urine RBC 0 SEEN, Urine WBC 0-5 SEEN, Ur Squamous Epith Cells 0 SEEN, Urine Bacteria RARE, Urine Mucus 0 SEEN 03/23/19 17:40: Urine Opiates Screen POSITIVE H, Urine Methadone Screen NEGATIVE, Ur Barbiturates Screen NEGATIVE, Ur Phencyclidine Scrn NEGATIVE, Ur Amphetamines Screen NEGATIVE, U Methamphetamin-MDMA POSITIVE H, U Benzodiazepines Scrn POSITIVE H, Urine Cocaine Screen NEGATIVE, U Cannabinoids Screen POSITIVE H, Ur Drug Screen Comment 03/24/19 05:46: WBC 11.0, RBC 3.85 L, Hgb 11.8 L, Hct 35.9 L, MCV 93.2, MCH 30.6, MCHC 32.9, RDW Std Deviation 45.3 H, RDW Coeff of Hannah 13.3, Plt Count 242, MPV 10.2, Immature Gran % (Auto) 0.400, Neut % (Auto) 69.5, Lymph % (Auto) 22.5, [place] % (Auto) 6.7, Eos % (Auto) 0.4, Baso % (Auto) 0.5, Absolute Neuts (auto) 7.7, Absolute Lymphs (auto) 2.48, Nucleated RBC % 0 03/24/19 05:46: Sodium 139, Potassium 3.3 L, Chloride 108 H, Carbon Dioxide 26.0, Anion Gap 5, BUN 9, Creatinine 0.86, Estim Creat Clear Calc 109.45, Est GFR (MDRD) Af Amer 121, Est GFR (MDRD) Non-Af 100, BUN/Creatinine Ratio 10.5, Glucose 120 H, Calcium 8.1 L, Phosphorus 1.8 L, Magnesium 1.9, Triglycerides 81, Cholesterol 158, LDL Cholesterol 96, VLDL Cholesterol 16, HDL Cholesterol 46 03/24/19 05:46: Miscellaneous Test Pending Current Medications Acetaminophen (Tylenol) 1,000 mg PO Q8H PRN PRN PRN Reason: mild pain 1-3 Last Admin: 03/24/19 03:16 Dose: 1,000 mg Documented by: Bisacodyl (Dulcolax) 10 mg RECTAL .X1 PRN PRN PRN Reason: See label comments Bisacodyl (Dulcolax) 10 mg PO .X1 PRN PRN PRN Reason: See label comments Diphenhydramine HCl (Benadryl) 12.5 - 25 mg IV Q6H PRN PRN PRN Reason: ITCHING Diphenhydramine HCl (Benadryl) 12.5 - 25 mg PO Q6H PRN PRN PRN Reason: Pruritis Enoxaparin Sodium (Lovenox) 40 mg SC DAILY [facility] Fentanyl Citrate (Sublimaze (100mcg Ampule)) 50 mcg IV Q2H PRN PRN PRN Reason: pain 7-10 Sodium Chloride () 250 mls @ 15 mls/hr IV .[id number] PRN PRN Reason: Saline Flush Lactated Ringer's () 1,000 mls @ 100 mls/hr IV .Q10H [facility] Last Infusion: 03/24/19 05:55 Dose: 100 mls/hr Documented by: Naloxone HCl (Narcan) 0.02 mg IV Q1M PRN PRN Reason: RR <10 and pt unresponsive Ondansetron HCl (Zofran) 4 mg IV Q8H PRN PRN PRN Reason: NAUSEA Oxycodone HCl (Oxyir) 10 mg PO Q4H PRN PRN PRN Reason: pain 4-6 Last Admin: 03/24/19 06:00 Dose: 10 mg Documented by: Pantoprazole Sodium (Protonix) 40 mg PO BID [facility] Last Admin: 03/23/19 22:04 Dose: 40 mg Documented by: Senna/Docusate Sodium (Senokot-S, Rajni-Colace) 2 tablet PO QHS [facility] Last Admin: 03/23/19 22:04 Dose: 2 tablet Documented by: Sodium Chloride () 5 - 15 ml IV UD PRN PRN Reason: SALINE FLUSH Last Admin: 03/24/19 05:19 Dose: 10 ml Documented by: Medical Necessity - Tobacco Use Smoking Status: Never smoker Tobacco Use: - - Marijuana Assessment/Plan All Active Problems (Last Reviewed 10/21/19 @ 20:13 by Liliana Paula DO) Intractable generalized abdominal pain (Acute) Elevated lactic acid level (Acute) Elevated lipase (Acute) Nausea and vomiting (Acute) I am seeing this patient in conjunction with Dr. Rodney. He will independently evaluate this patient EGD yesterday by Dr. Rodney showed erythema of the prepyloric region of the stomach otherwise unremarkable exam. Labs reviewed CTA of the abdomen pending Continue PPI as an outpatient We will continue to monitor this Code Visit Inpatient E&M: 01738 Subs Hosp L1
[2019-03-24] MEDS: Pantoprazole Sodium 40 MG Tablet PO ×2 (09:43→19:50)
[2019-03-24] MEDS: Lactated Ringers 1,000 ML 100 ML IV (09:44)
[2019-03-24] MEDS: Enoxaparin 40 MG/0.4 ML Syringe SC (11:37)
[2019-03-24] MEDS: Ensure Clear 120 ML Liquid PO (16:15)
[2019-03-24] MEDS: Sertraline 50 MG Tablet PO (16:15)
[2019-03-24] MEDS: Senna/Docusate Sodium 1 Tablet 2 TABLET PO (19:50)
[2019-03-24] MEDS: busPIRone 5 MG Tablet PO (19:52)
--- NOTE | 2019-03-24 20:52 | PN_ITS ---
Patient Problems: Active and Suspected Problems (Last Reviewed 03/23/19 @ 20:13 by Liliana Paula DO) Intractable generalized abdominal pain (Acute) Elevated lactic acid level (Acute) Elevated lipase (Acute) Nausea and vomiting (Acute) Subjective: All events of the past 24 hours of been reviewed. CTA of the abdomen and pelvis today showed a normal abdominal aorta and bilateral lower extremity runoff without a hemodynamically significant stenosis. There is a tubular, thick- walled appendix with significant fat stranding. Pt now admits to me that he has been getting DABS from a nephew who gets it from an out of [place] store. this is apparently a form of marijuana. Since he was using the DABS he became more irritable per his significant other and she made him stop but then the pain and the anxiety got worse. The nephew also apparently got irritable and stopped the DABS. since there is no regulation in this country about the THC vs CBD content of marijuana products there is no way to tell how much THC he has been getting or what it is laced with. The drug screen is + for Meth but, he was taking Wellbutrin and this causes a false + test. a confimatory test was sent yesterday. Has been taking the Oxy IR about every 5 hours for pain. He is very emotional and when he gets upset he pulls his legs up to his chest and starts shaking his legs. No vomiting. He is ready for an advance in his diet. he and his significant other have received counselling about a gluten free, lactose free diet. Vital signs are stable and he is not tachycardic or hypertensive. He is 98 to 99% saturated on room air and he has been afebrile since admission. All lab has been personally reviewed. Potassium is low at 3.3 today and supplementation was ordered. The BUN is 9 and the creatinine is 0.86. Hemoglobin is 11.8 following hydration. White blood cell count and differential are within normal limits today. ESR was 19 and the CRP was less than 2.9. LDL is 96 and the HDL is 46. Endomysial antibodies are pending. - Physical Exam Vitals/I&O's: Vital Signs Temp Pulse Resp BP Pulse Ox 97.7 F L 55 L 16 133/84 H 99 03/24/19 19:56 03/24/19 19:56 03/24/19 19:56 03/24/19 19:56 03/24/19 19:56 Oxygen Flow Rate (L/min) 2 Oxygen Delivery Method Room Air Weight: 172 lb 6.424 oz Body Mass Index (BMI) 24.0 Intake and Output for Last 24 Hours 03/22/19 03/23/19 03/24/19 23:59 23:59 23:59 Intake Total 5211.6633 / 5211.6633 1785.0033 / 1785.0033 Output Total 100 / 100 600 / 600 Balance 5111.6633 / 5111.6633 1185.0033 / 1185.0033 General: Alert, Oriented x3, Cooperative, No apparent distress - when I entered the room but then he started crying and shaking his legs and drawing his knees up to his chest. HEENT: Atraumatic, PERRLA, EOMI, Normocephalic Oral: Moist Mucosa Neck: Supple, No JVD, Negative Carotid Bruits, Trachea Midline Lungs: Clear to auscultation, Normal air movement Cardiovascular: Regular rate, Regular Rhythm, Normal S1, Normal S2, No murmurs, No rub noted, No Gallop Abdomen: Bowel Sounds Present, Soft, Non-Distended, - - no guarding with palpation. Extremities: No clubbing, No cyanosis, No edema Neurological: Cranial nerves II-XII grossly intact, Neuro grossly intact Psych/Mental Status: Impulsive, - - emotionally labile. anxious and a bit histrionic....I feel he has poor pain tolerance and he over reports pain. Microbiology Past 72 Hours 03/23/19 05:42 Stool Enteric Bacteriology - Final 03/23/19 05:42 Stool C. difficile DNA Amplification - Final 03/23/19 05:35 Stool Stool Occult Blood (MILLIE) - Final 03/23/19 05:42 Stool Stool Lactoferrin - Final Laboratory Results 03/24/19 05:46: WBC 11.0, RBC 3.85 L, Hgb 11.8 L, Hct 35.9 L, MCV 93.2, MCH 30.6, MCHC 32.9, RDW Std Deviation 45.3 H, RDW Coeff of Hannah 13.3, Plt Count 242, MPV 10.2, Immature Gran % (Auto) 0.400, Neut % (Auto) 69.5, Lymph % (Auto) 22.5, [place] % (Auto) 6.7, Eos % (Auto) 0.4, Baso % (Auto) 0.5, Absolute Neuts (auto) 7.7, Absolute Lymphs (auto) 2.48, Nucleated RBC % 0 03/24/19 05:46: Sodium 139, Potassium 3.3 L, Chloride 108 H, Carbon Dioxide 26.0, Anion Gap 5, BUN 9, Creatinine 0.86, Estim Creat Clear Calc 109.45, Est GFR (MDRD) Af Amer 121, Est GFR (MDRD) Non-Af 100, BUN/Creatinine Ratio 10.5, Glucose 120 H, Calcium 8.1 L, Phosphorus 1.8 L, Magnesium 1.9, Triglycerides 81, Cholesterol 158, LDL Cholesterol 96, VLDL Cholesterol 16, HDL Cholesterol 46 03/24/19 05:46: Miscellaneous Test Pending Current Medications Acetaminophen (Tylenol) 1,000 mg PO Q8H PRN PRN PRN Reason: mild pain 1-3 Last Admin: 03/24/19 19:49 Dose: 1,000 mg Documented by: Bisacodyl (Dulcolax) 10 mg RECTAL .X1 PRN PRN PRN Reason: See label comments Bisacodyl (Dulcolax) 10 mg PO .X1 PRN PRN PRN Reason: See label comments Buspirone HCl (Buspar) 5 mg PO TID [facility] Last Admin: 03/24/19 19:52 Dose: 5 mg Documented by: Diphenhydramine HCl (Benadryl) 12.5 - 25 mg IV Q6H PRN PRN PRN Reason: ITCHING Diphenhydramine HCl (Benadryl) 12.5 - 25 mg PO Q6H PRN PRN PRN Reason: Pruritis Enoxaparin Sodium (Lovenox) 40 mg SC DAILY [facility] Last Admin: 03/24/19 11:37 Dose: 40 mg Documented by: Sodium Chloride () 250 mls @ 15 mls/hr IV .[id number] PRN PRN Reason: Saline Flush Lactated Ringer's () 1,000 mls @ 100 mls/hr IV .Q10H [facility] Last Infusion: 03/24/19 18:17 Dose: 100 mls/hr Documented by: Naloxone HCl (Narcan) 0.02 mg IV Q1M PRN PRN Reason: RR <10 and pt unresponsive Nutritional Formula (Lactose Free) (Ensure Clear) 120 ml PO TIDCM [facility] Last Admin: 03/24/19 16:15 Dose: 120 ml Documented by: Ondansetron HCl (Zofran) 4 mg IV Q8H PRN PRN PRN Reason: NAUSEA Oxycodone HCl (Oxyir) 10 mg PO Q4H PRN PRN PRN Reason: pain 4-6 Last Admin: 03/24/19 17:05 Dose: 10 mg Documented by: Pantoprazole Sodium (Protonix) 40 mg PO BID [facility] Last Admin: 03/24/19 19:50 Dose: 40 mg Documented by: Potassium Chloride (K-Dur) 20 meq PO BIDCM [facility] Last Admin: 03/24/19 16:15 Dose: 20 meq Documented by: Senna/Docusate Sodium (Senokot-S, Rajni-Colace) 2 tablet PO QHS [facility] Last Admin: 03/24/19 19:50 Dose: 2 tablet Documented by: Sertraline HCl (Zoloft) 50 mg PO DAILY [facility] Last Admin: 03/24/19 16:15 Dose: 50 mg Documented by: Sodium Chloride () 5 - 15 ml IV UD PRN PRN Reason: SALINE FLUSH Last Admin: 03/24/19 15:48 Dose: 10 ml Documented by: Medical Necessity - Tobacco Use Smoking Status: Never smoker Tobacco Use: - - Marijuana Assessment/Plan All Active Problems (Last Reviewed 03/23/19 @ 20:13 by Liliana Paula, DO) Intractable generalized abdominal pain (Acute) Elevated lactic acid level (Acute) Elevated lipase (Acute) Nausea and vomiting (Acute) Impressions 1. severe abdominal pain associated with nausea and emesis on chronic abdominal pain for 10-12 years. Previously on Percocet but, cut off 3 years ago. No physical or lab abnormalities to support this degree of pain. Dr. Rodney has been consulted. Keep NPO. Fentanyl [employer]. Drug screen. ? overlyng mental health disorder? possible ischemic bowel? Gluten sensitive enteropathy? lactose intolerance? no evidenc on the CT of the abdomen for IBD. IBS? W/U in progress. Porphyria? CTA of the abd and pelvis is normal. 2. Lactic acidosis - suspect due to dehydration from the vomiting. Vomitus has the appearance of bile. Has had a cholecystectomy in the past. Resolved with hydration. 3. daily marijuana use......has been getting DABS from an out of state nephew ......suspect the THC content is very high and this may be contributing to the emotional lability. 4. elevated lipase is most likely due to vomiting and not to acute pancreatitis. The pancreas appears normal on the CT scan. check TRIG 5. hyperglycemia - likely due to stress. HGBA1C is normal 6. BL femoral bruits - no sx of claudication and normal run off into the legs on the CTA 7. ? hx of PUD - obtain records from his previous molder offbearer. No ulcers at EGD yesterday. Check a 24H urine or porphyrins. advance the diet to a gluten free, dairy free diet. continue the Oxy IR for now but, if the porphyrins are negative will DC the narcotics and start Librax of Bentyl. Code Visit Inpatient E&M: 80267 Subs Hosp L2
[2019-03-25] MEDS: Lactated Ringers 1,000 ML 100 ML IV (03:48)
[2019-03-25] MEDS: oxyCODONE 5 MG Tablet 10 MG PO (04:51)
[2019-03-25] MEDS: busPIRone 5 MG Tablet PO ×3 (04:52→21:46)
[2019-03-25 04:55] VITALS: BP 169/86; PULSE 58; RESP 18; TEMP 36.8; O2SAT 100
[2019-03-25 07:54] VITALS: O2SAT 99
[2019-03-25 08:08] VITALS: BP 165/82; PULSE 57; RESP 16; TEMP 36.3; O2SAT 100
[2019-03-25] MEDS: Sertraline 50 MG Tablet PO (08:14)
[2019-03-25] MEDS: Pantoprazole Sodium 40 MG Tablet PO ×2 (08:14→21:46)
[2019-03-25] MEDS: Ensure Clear 120 ML Liquid PO ×2 (08:14→16:46)
[2019-03-25] MEDS: Enoxaparin 40 MG/0.4 ML Syringe SC (08:17)
[2019-03-25 08:27] LABS: Anion Gap 4 (5-15); BUN 5 mg/dL (7-18); BUN/Creat Ratio 6.3 RATIO (10-20); Calcium,Total 8.9 mg/dL (8.5-10.1); Chloride 108 mmol/L (98-107); Creatinine, Serum 0.79 mg/dL (0.70-1.30); EST Glomerular Filtration Rate 110 mL/min (>60); Est Glom Filt Rate - Afr Amer 133 mL/min (>60); Estimated Creatinine Clearance 119.15 ml/min; Glucose 126 mg/dL (74-106); Magnesium 1.8 mg/dL (1.6-2.6); Phosphorus 2.1 mg/dL (2.5-4.9); Potassium 3.4 mmol/L (3.5-5.1); Sodium Level 140 mmol/L (136-145)
[2019-03-25] MEDS: Dicyclomine 10 MG Capsule PO ×3 (09:57→21:46)
[2019-03-25] MEDS: Na Biphos/Potassium Phosphate PACKET 1 PACKET PO ×2 (09:57→16:46)
[2019-03-25] MEDS: Potassium Chloride 10mEq/100mL 10 MEQ/100 ML IV.SOLN. 100 MEQ IV BOLUS ×3 (10:01→12:43)
[2019-03-25] MEDS: Acetaminophen 500 MG Tablet 1000 MG PO ×2 (11:26→18:26)
[2019-03-25 11:42] VITALS: BP 166/85; PULSE 61; RESP 18; TEMP 36.5; O2SAT 100
--- NOTE | 2019-03-25 11:51 | CASEMGMT ---
Social Work Note Physician updated this worker that pt takes dabs which is a form of marijuana but also apparently laced with Meth as pt tested positive for methamphetamin. Pt is interested in outpatient drug treatment options. SW met with pt and introduced self and role at [facility]. Pt is alert and orientated x3. Pt confirms that he was taking dabs. Pt states dabs are liquid marijuana. Pt states that he was upset when he found out that he tested positive for methamphetamin as he thought he was only taking marijuana. Pt understands now that when he takes drugs he doesn't always know what the drugs are laced with and that scares him. SW offered support to pt. Pt states that he wants to stop taking drugs. Pt states that he has been in counseling before. Pt states that his mom about 2 years ago. SW offered support to pt. Pt confirms that he is interested in outpatient rehab at discharge. SW provided pt with packet of counseling and drug treatment options. Pt denied wanting this worker to make an initial appointment, states he will make an appointment when he decides on a agency. Pt denied additional needs or concerns at this time. Yola Baig PATIENT EXPERIENCE COORDINATOR, [employer]
[2019-03-25] MEDS: Lactated Ringers 1,000 ML 75 ML IV (13:35)
[2019-03-25 15:01] VITALS: BP 153/78; PULSE 57; RESP 16; TEMP 36.8; O2SAT 98
[2019-03-25 15:32] LABS: Endomysial Antibody IgA Negative (Negative)
[2019-03-25 19:57] VITALS: BP 140/83; PULSE 57; RESP 18; TEMP 37.2; O2SAT 100
--- NOTE | 2019-03-25 20:33 | PCM.PROGNOTE ---
Subjective: The 24-hour urine collection ordered 03/23/2019 for porphyrins was never set up. Patient tells me today that his nephew was tested for methamphetamine and his drug screen was positive. They have both been doing the same DABS....they smoke these. He now is interested in a drug rehab program and he wants to get off all addictive medications. The abd pain is crampy and it increases with increased stress. He is less tearful today and there is no family in the room......he is less emotionally labile when family not in the room. K is once again low and so is the phos - supplements have been ordered. Endomysial antibodies are negative. Inflammatory test for methamphetamine is still pending. He denies abd pain today. He tells me that his nephew who supplied him with the DABS was tested for methamphetamine and he was +......it is likely the drug was laced with METH. Slept better last night. - Physical Exam Vitals/I&O's: Vital Signs Temp Pulse Resp BP Pulse Ox 99.0 F 57 L 18 140/83 H 100 03/25/19 19:57 03/25/19 19:57 03/25/19 19:57 03/25/19 19:57 03/25/19 19:57 Oxygen Flow Rate (L/min) 2 Oxygen Delivery Method Room Air Weight: 172 lb 6.424 oz Body Mass Index (BMI) 24.0 Intake and Output for Last 24 Hours 03/23/19 03/24/19 03/25/19 23:59 23:59 23:59 Intake Total 5211.6633 / 5211.6633 1785.0033 / 1785.0033 2754.17 / 2754.17 Output Total 100 / 100 600 / 600 300 / 300 Balance 5111.6633 / 5111.6633 1185.0033 / 1185.0033 2454.17 / 2454.17 General: Alert, Oriented x3, - - calmer and less emotionally labile today Oral: Moist Mucosa Lungs: Clear to auscultation Cardiovascular: Regular rate, Regular Rhythm Abdomen: Bowel Sounds Present, Soft, Non Tender, Non-Distended Extremities: No edema Neurological: Cranial nerves II-XII grossly intact, Neuro grossly intact Microbiology Past 72 Hours 03/23/19 17:25 Urine, Clean Catch Urine Culture - Preliminary Culture exhibits no growth. 03/23/19 05:42 Stool Enteric Bacteriology - Final 03/23/19 05:42 Stool C. difficile DNA Amplification - Final 03/23/19 05:35 Stool Stool Occult Blood (MILLIE) - Final 03/23/19 05:42 Stool Stool Lactoferrin - Final Laboratory Results 03/23/19 11:12: Endomysial IgA Ab Negative 03/25/19 07:54: Sodium 140, Potassium 3.4 L, Chloride 108 H, Carbon Dioxide 28.0, Anion Gap 4 L, BUN 5 L, Creatinine 0.79, Estim Creat Clear Calc 119.15, Est GFR (MDRD) Af Amer 133, Est GFR (MDRD) Non-Af 110, BUN/Creatinine Ratio 6.3 L, Glucose 126 H, Calcium 8.9, Phosphorus 2.1 L, Magnesium 1.8 Current Medications Acetaminophen (Tylenol) 1,000 mg PO Q8H PRN PRN PRN Reason: mild pain 1-3 Last Admin: 03/25/19 18:26 Dose: 1,000 mg Documented by: Bisacodyl (Dulcolax) 10 mg RECTAL .X1 PRN PRN PRN Reason: See label comments Bisacodyl (Dulcolax) 10 mg PO .X1 PRN PRN PRN Reason: See label comments Buspirone HCl (Buspar) 5 mg PO TID REPLACED BY [facility] Last Admin: 03/25/19 13:34 Dose: 5 mg Documented by: Dicyclomine HCl (Bentyl) 10 mg PO ACHS REPLACED BY [facility] Last Admin: 03/25/19 15:15 Dose: 10 mg Documented by: Diphenhydramine HCl (Benadryl) 12.5 - 25 mg IV Q6H PRN PRN PRN Reason: ITCHING Diphenhydramine HCl (Benadryl) 12.5 - 25 mg PO Q6H PRN PRN PRN Reason: Pruritis Enoxaparin Sodium (Lovenox) 40 mg SC DAILY REPLACED BY [facility] Last Admin: 03/25/19 08:17 Dose: 40 mg Documented by: Sodium Chloride () 250 mls @ 15 mls/hr IV .[id number] PRN PRN Reason: Saline Flush Lactated Ringer's () 1,000 mls @ 75 mls/hr IV .[id number] REPLACED BY [facility] Last Admin: 03/25/19 13:35 Dose: 75 mls/hr Documented by: Naloxone HCl (Narcan) 0.02 mg IV Q1M PRN PRN Reason: RR <10 and pt unresponsive Nutritional Formula (Lactose Free) (Ensure Clear) 120 ml PO TIDCM REPLACED BY [facility] Last Admin: 03/25/19 16:46 Dose: 120 ml Documented by: Ondansetron HCl (Zofran) 4 mg IV Q8H PRN PRN PRN Reason: NAUSEA Pantoprazole Sodium (Protonix) 40 mg PO BID REPLACED BY [facility] Last Admin: 03/25/19 08:14 Dose: 40 mg Documented by: Potassium Phos/Sodium Phos (Neutra-Phos Packet) 1 packet PO TIDCM REPLACED BY [facility] Stop: 03/28/19 12:01 Last Admin: 03/25/19 16:46 Dose: 1 packet Documented by: Senna/Docusate Sodium (Senokot-S, Rajni-Colace) 2 tablet PO QHS REPLACED BY [facility] Last Admin: 03/24/19 19:50 Dose: 2 tablet Documented by: Sertraline HCl (Zoloft) 50 mg PO DAILY REPLACED BY [facility] Last Admin: 03/25/19 08:14 Dose: 50 mg Documented by: Sodium Chloride () 5 - 15 ml IV UD PRN PRN Reason: SALINE FLUSH Last Admin: 03/24/19 15:48 Dose: 10 ml Documented by: Medical Necessity - Tobacco Use Smoking Status: Never smoker Tobacco Use: - - Marijuana Assessment/Plan All Active Problems (Last Reviewed 03/23/19 @ 20:13 by Liliana Paula DO) Hypokalemia (Resolved) Hypophosphatemia (Resolved) Gastritis (Acute) Intractable generalized abdominal pain (Acute) Elevated lactic acid level (Acute) Elevated lipase (Acute) Nausea and vomiting (Acute) Impressions 1. severe abdominal pain associated with nausea and emesis on chronic abdominal pain for 10-12 years. Previously on Percocet but, cut off 3 years ago. No physical or lab abnormalities to support this degree of pain. Dr. Rodney has been consulted. Keep NPO. Fentanyl [employer] never started because the pain resolved after fluids. Drug screen. ? overlyng mental health disorder? possible ischemic bowel? Gluten sensitive enteropathy? lactose intolerance? no evidenc on the CT of the abdomen for IBD. IBS? W/U in progress. Porphyria? CTA of the abd and pelvis is normal. 2. Lactic acidosis - suspect due to dehydration from the vomiting. Vomitus has the appearance of bile. Has had a cholecystectomy in the past. Resolved with hydration. 3. daily marijuana use......has been getting DABS from an out of state nephew ......suspect the THC content is very high and this may be contributing to the emotional lability. 4. elevated lipase is most likely due to vomiting and not to acute pancreatitis. The pancreas appears normal on the CT scan. check TRIG 5. hyperglycemia - likely due to stress. HGBA1C is normal 6. BL femoral bruits - no sx of claudication and normal run off into the legs on the CTA 7. ? hx of PUD - obtain records from his previous nutrition services worker. No ulcers at EGD yesterday. DC the Oxy IR and start Bentyl for crampy abdominal pain. I am suspicious that his problem with chronic abdominal pain is due to IBS. Reorder the 24 H urine for porphyrins. Code Visit Inpatient E&M: [id number] Subs Hosp L2
[2019-03-25] MEDS: Senna/Docusate Sodium 1 Tablet 2 TABLET PO (21:46)
[2019-03-26 02:35] VITALS: BP 154/86; PULSE 63; RESP 18; TEMP 36.8; O2SAT 100
[2019-03-26] MEDS: Lactated Ringers 1,000 ML 75 ML IV (03:47)
[2019-03-26] MEDS: Acetaminophen 500 MG Tablet 1000 MG PO (04:22)
[2019-03-26] MEDS: Dicyclomine 10 MG Capsule PO ×2 (06:02→11:07)
[2019-03-26] MEDS: busPIRone 5 MG Tablet PO (06:02)
[2019-03-26 06:52] LABS: Hematocrit 38.4 % (40-54); Hemoglobin 12.8 g/dL (13.0-16.5); Mean Corp Hgb Conc 33.3 g/dL (32-36); Mean Corpuscular Hgb 30.5 pg (27.0-32.0); Mean Corpuscular Volume 91.4 fL (80-94); Platelet Count 265 K/mm3 (150-450); RBC Distribution Width CV 12.7 % (11.6-14.6); RBC Distribution Width SD 41.9 fl (35.1-43.9); White Blood Count 8.2 K/mm3 (4.4-11.0)
[2019-03-26 07:10] LABS: Anion Gap 6 (5-15); BUN 4 mg/dL (7-18); BUN/Creat Ratio 5.2 RATIO (10-20); Chloride 106 mmol/L (98-107); Creatinine, Serum 0.77 mg/dL (0.70-1.30); EST Glomerular Filtration Rate 114 mL/min (>60); Est Glom Filt Rate - Afr Amer 138 mL/min (>60); Estimated Creatinine Clearance 122.24 ml/min; Glucose 114 mg/dL (74-106); Phosphorus 2.8 mg/dL (2.5-4.9); Potassium 3.5 mmol/L (3.5-5.1); Sodium Level 141 mmol/L (136-145)
[2019-03-26 11:00] VITALS: BP 167/94; PULSE 58; RESP 18; TEMP 36.8; O2SAT 100
[2019-03-26] MEDS: Sertraline 50 MG Tablet PO (11:06)
[2019-03-26] MEDS: Pantoprazole Sodium 40 MG Tablet PO (11:06)
[2019-03-26] MEDS: Na Biphos/Potassium Phosphate PACKET 1 PACKET PO ×2 (11:06→11:11)
[2019-03-26] MEDS: Enoxaparin 40 MG/0.4 ML Syringe SC (11:06)
[2019-03-26] MEDS: Ensure Clear 120 ML Liquid PO ×2 (11:10→11:11)
--- NOTE | 2019-03-26 12:09 | DCINST_ITS ---
- Discharge Diagnoses Current Active Problems: Current Active and Chronic Problems (Last Reviewed 03/23/19 @ 20:13 by Liliana Paula DO) Intractable generalized abdominal pain (Acute) Elevated lactic acid level (Acute) Elevated lipase (Acute) Nausea and vomiting (Acute) You will use the following diet at home:: Other - no caffeine, bland diet. Dairy free. Your food should be the consistency of: Regular Your liquids should be the consistency of: Regular/Thin Discharge Activity: Return to Normal Activity Call your doctor if you observe: Fever of 101 or Higher, Shortness of breath, Dizziness, Fainting spells, Chest pain, Calf discomfort, Uncontrolled pain, - - recurrent Nausea, vomiting Instructions: What Is IBS? Additional Instructions: 1. The upper endoscopy showed mild inflammation of the stomach lining and this is called gastritis. There were no ulcers. I suspect that the etiology of your chronic abdominal pain is irritable bowel syndrome. I have given you some literature to read about irritable bowel syndrome(also called IBS) and what things to avoid. Stress and anxiety are huge triggers for IBS. I have increased the Escitalopram to 20 mg daily and I have added a medication called Buspar which is non-addictive and treats anxiety. Take this medication 3 times a day. You can continue taking the Trazodone at bedtime to help you sleep. Do not take Wellbutrin.......this medication increases anxiety in some patients....... and it can cause headaches and GI disturbance. 2. follow up with Dr. Rodney as previously arranged. 3. controlling your anxiety and depression is going to be very important in controlling the abdominal pain - these 2 things are closely tied together. Please follow up with a counsellor to help manage your anxiety with therapy. 4. Good Smyrn[place]um[place]a [place] - stay away from DRUGS...they are bad for you and you never know what your are actually getting. Pending Tests on Discharge: Confirmatory test for methamphetamine Allergies/Adverse Reactions: Allergies metronidazole [From Flagyl] Adverse Reaction (Verified 03/23/19 11:17) Other Medications to take at Discharge loratadine 10 mg tablet 10 mg PO DAILY 03/16/19 Acetaminophen [Tylenol] 1,000 mg PO Q8H PRN PRN tab 03/26/19 Dicyclomine HCl [Bentyl] 10 mg PO ACHS #120 cap 03/26/19 Escitalopram Oxalate 20 mg PO DAILY #30 tab 03/26/19 Trazodone HCl 100 mg PO QHS #1 03/26/19 busPIRone [Buspar] 5 mg PO TID #90 tab 03/26/19 The following prescriptions were given: Dicyclomine HCl [Bentyl] 10 mg PO ACHS #120 cap Transmission Status: Pending to [id number] busPIRone [Buspar] 5 mg PO TID #90 tab Transmission Status: Pending to [id number] Escitalopram Oxalate 20 mg PO DAILY #30 tab Prescription Printed Primary Care Physician: Tonny Mcclelland MD [Primary Care Provider] - Please follow up with your Primary Care Physician in: 1 week Test Results: Test results from this visit will be discussed in further detail at your follow- up appointment, if applicable. Proposed Discharge Date: 03/26/19
--- NOTE | 2019-03-30 12:57 | DS.PCM_ITS ---
Discharge Date and Diagnosis Date of Admission: 03/23/19 Date of Discharge: 03/26/19 - Primary Discharge Diagnosis Severe/intractable abdominal pain Nausea and vomiting Lactic acidosis -more likely than not secondary to dehydration Hyperglycemia secondary to stress. Hemoglobin A1c normal Peripheral vascular disease with bilateral femoral bruits Polysubstance use/abuse IBS - suspected - Secondary Discharge Diagnosis Chronic Problems (Last Reviewed 03/23/19 @ 20:13 by Liliana Paula DO) Anxiety and depression (Chronic) BL Femoral bruit (Chronic) Cannabis dependence, daily use (Chronic) chronic abdominal pain Hospital Course and Treatment Imaging Results: Clinical Impression(s) from Imaging Studies Chest X-Ray 03/23/19 05:29 IMPRESSION: Normal x-ray examination of the chest. Electronically Signed: Jose Cade, at 6:47 EDT Tel , Service support , Abdomen/Pelvis CT 03/23/19 05:39 IMPRESSION: Normal unenhanced CT of the abdomen and pelvis. Electronically Signed: Jose Cade, at 7:21 EDT Tel , Service support , ADDENDUM: 03/24/19 0007 IMPRESSION: Normal enhanced CT of the abdomen and pelvis. Normal abdominal aorta. Normal inferior vena cava. Normal retroperitoneum. The common iliac arteries, the external and internal iliac arteries, the common femoral arteries show no evidence of stenosis or dissection. Electronically Signed: Jose Cade, at 0:00 EDT Tel , Service support , Abdomen/Pelvis CTA 03/24/19 05:30 IMPRESSION: Normal abdominal aorta and bilateral lower extremity run-off without a hemodynamically significant stenosis. There is a tubular, thick-walled appendix (>7mm), without significant fat stranding may represent a normal variation. Clinical correlation may be warranted to exclude appendicitis. Electronically Signed: Jose Cade at 8:22 EDT Tel , Service support , Microbiology 03/23/19 05:42 Stool Ova and Parasites - Final 03/23/19 17:25 Urine, Clean Catch Urine Culture - Final Culture exhibits no growth. 03/23/19 05:42 Stool Enteric Bacteriology - Final 03/23/19 05:42 Stool C. difficile DNA Amplification - Final 03/23/19 05:35 Stool Stool Occult Blood (MILLIE) - Final 03/23/19 05:42 Stool Stool Lactoferrin - Final Dr. Bk [facility] general surgery Operations: None Procedures: EGD - Impressions : - Normal esophagus. No specimens collected. - Erythematous mucosa in the prepyloric region of the stomach. Biopsied. - Normal examined duodenum. No specimens collected. Summary of Care Provided: The patient is a 48 year old M with a past medical history of abdominal pain for the past 10 to 12 years, cannabis use and peptic ulcer disease who presented to the emergency department at [facility] on 03/23/2019 complaining of severe abdominal pain associated with vomiting and diarrhea that woke him from sleep at 3 AM. When he went to bed he had no complaints. Abdominal pain was worse in the lower abdomen and it radiated to the low back. He told me that he has had abdominal pain every day for the past 10-12 years and he used to take Percocet but, he was cut off 3 years ago. The vomitus was bilious. Stool had no fecal leukocytes and was negative for blood. C. difficile was negative. He was also seen in the ED on 03/21/[address] Holt. At that time he c/o a hx of duodenal ulcer. He told me he does not know where the ulcer was on EGD done in September [address] Jackson at [facility]. He also told me that he had a colonoscopy and he did not know the results. He told Dr. Rodney he had an esophageal ulcer. There is no FH of IBD. Mother from pancreatic Cancer but also had colon CA. He denied any illicit drug use other than marijuana. He told me that he doses not like to take narcotics. Denied Meth use. Admitted to using cocaine many years ago. Vital signs at presentation to the emergency department were temperature 97.4, pulse rate 83, blood pressure 167/96, respiratory rate 28 and he was 92 to 100% saturated on room air. White blood cell count was mildly increased at 11.9 but the differential was within normal limits. Hemoglobin and platelets were normal. PT and PTT were normal. BMP was unremarkable. Random glucose was 206 but the hemoglobin A1c was 5.3. Lactic acid was 2.8 but the recheck after fluids was 2.0. LFTs were unremarkable. Amylase was mildly increased at 121 but a recheck a few hours later was normal at 64. Triglycerides were 40. Lipase was 622 and he denied any history of chronic pancreatitis. I suspect the mild elevation was due to the N/V. He also denied any EtOH use. Urine tox screen was positive for opiates which he received in the emergency department, amphetamines, benzodiazepines and cannabinoids. A confirmatory test for methamphetamine was sent however the results were not available at the time of discharge. CT scan of the abdomen and pelvis with IV contrast was done and it was normal. When he eats dairy or bread he stated he gets increased abdominal pain and bloating. He still eats rye bread which he states he tolerates OK. He ate cheese yesterday and he told me that he was lactose intolerant. He was admitted to the hospital with a dx of intractable abdominal pain associated with N/V. Dr. Rodney was consulted. He was taken for an EGD on the day of admission and this showed a normal esophagus and a normal duodenum. There was mild erythema of the gastric mucosa. Biopsies were taken. H. pylori was negative and the pathology on the gastric biopsy showed mild gastritis. A CTA of the abd and pelvis was done to exclude mesenteric ischemia as the etiology of his intractable abdominal pain. He had bilateral femoral bruits on physical examination. The CTA showed normal abdominal aorta and bilateral lower extremity runoff without hemodynamically significant stenosis. The appendix was thick-walled and tubular without significant fat stranding. The pt later revealed to me that he had been doing dabs sent to him by his nephew from [place]. His significant other reported that his personality changed shortly after he started using the dabs. The nephew apparently also was using the dabs and he tested positive for methamphetamine as well. Endomysial antibodies were negative. A 24-hour urine was obtained for quantitative porphyrins and it is still pending at the time of discharge. Over the course of his 3 days in the hospital he became much calmer and less emotionally labile. He was seen by the dietitian and instructed in a gluten-free/lactose-free diet. He was advised to try this for 3 weeks and if he still had abdominal pain he will consult his primary care physician for further advice. He has a benign physical exam and pain that was out of proportion to the physical findings and laboratory. He may have porphyria. His PCP will follow up the results of the 24-hour urine for porphyrins. I think he suffers from chronic anxiety/depression which has been inadequately treated. He uses illicit drugs to control his anxiety and depression. These illicit drugs contributed to his pain/emotional lability at admission to the hospital. He was given information at discharge for contact numbers for local drug rehab facilities. He was discharged on Escitalopram 20 mg daily, trazodone 100 mg nightly for insomnia and BuSpar 5 mg 3 times daily for anxiety. He was also given a prescription for Bentyl 10 mg and instructed to take 1 p.o. before meals and at bedtime. At the time of discharge he had no abdominal pain. He will follow up with his PCP, Dr. Mcclelland, in 1 week. PHYSICAL EXAM: GENERAL: alert, oriented X 3, Cooperative, NAD ORAL: moist mucosa, no mucosal lesions NECK: No JVD, supple, trachea midline LUNGS: CTA, symmetric chest expansion HEART: RRR, Normal S1 and S2, no rub, no gallop ABDOMEN: soft, NT, ND, BS present, no guarding with palpation EXTREMITIES: no edema, no cyanosis, no calf tenderness SKIN: No rashes, no breakdown NEUROLOGIC: no focal neurologic deficits PSYCH: appropriate, normal affect, pleasant This note was generated with [employer] dictation software. It may contain incorrect words, spelling, and punctuation that were not noted in checking the note before signing. - Physical Exam Vitals/I&O's: Vital Signs Temp Pulse Resp BP Pulse Ox 98.2 F 58 L 18 167/94 H 100 03/26/19 11:00 03/26/19 11:00 03/26/19 11:00 03/26/19 11:00 03/26/19 11:00 Oxygen Flow Rate (L/min) 2 Oxygen Delivery Method Room Air Weight: 172 lb 6.424 oz Body Mass Index (BMI) 24.0 Microbiology Past 72 Hours 03/23/19 05:42 Stool Ova and Parasites - Final Discharge Activity: Return to Normal Activity Call your doctor if you observe: Fever of 101 or Higher, Shortness of breath, Dizziness, Fainting spells, Chest pain, Calf discomfort, Uncontrolled pain, - - recurrent Nausea, vomiting Home Medications: Medications to take at Discharge loratadine 10 mg tablet 10 mg PO DAILY 03/16/19 Acetaminophen [Tylenol] 1,000 mg PO Q8H PRN PRN tab 03/26/19 Dicyclomine HCl [Bentyl] 10 mg PO ACHS #120 cap 03/26/19 Escitalopram Oxalate 20 mg PO DAILY #30 tab 03/26/19 Famotidine [Pepcid] 20 mg PO BID #60 tab 03/26/19 Trazodone HCl 100 mg PO QHS #1 03/26/19 busPIRone [Buspar] 5 mg PO TID #90 tab 03/26/19 Following Prescrptions Were Given to Patient: Dicyclomine HCl [Bentyl] 10 mg PO ACHS #120 cap Transmission Status: Received by [id number] busPIRone [Buspar] 5 mg PO TID #90 tab Transmission Status: Received by [id number] Escitalopram Oxalate 20 mg PO DAILY #30 tab Prescription Printed Famotidine [Pepcid] 20 mg PO BID #60 tab Transmission Status: Received by [facility] Primary Care Physician: Tonny Mcclelland MD [Primary Care Provider] - Please follow up with your Primary Care Physician in: 1 week Patient Instructions: What Is IBS? Disposition: Home Minutes spent on discharge:: 40 Patient Condition:: Stable Medical Necessity - Tobacco Use Smoking Status: Never smoker Tobacco Use: Non-smoker, - - Marijuana Meaningful Use Info Meaningful Use Diagnoses (Choose all that apply): None applicable Code Visit Inpatient E&M: 56995 Disch Hosp
[2019-03-31 11:50] LABS: Coproporphyrin I, Urine 11 ug/L (Undefined); Coproporphyrin I,24 Hour 42 ug/24 hr (0-24); Coproporphyrin III, Urine 54 ug/L (Undefined); Heptacarboxylporph.,24 Hour 4 ug/24 hr (0-4); Heptacarboxylporph.,Urine 1 ug/L (Undefined); Hexacarboxylporph.,24 Hour <4 ug/24 hr (0-1); Hexacarboxylporph.,Urine <1 ug/L (Undefined); Pentacarboxylporph,24 Hour <4 ug/24 hr (0-4); Pentacarboxylporphyrin,Urine <1 ug/L (Undefined); Uroporphyrin, 24 Hour 15 ug/24 hr (0-24); Uroporphyrin,Urine 4 ug/L (Undefined)
[2019-03-31 13:26] LABS: Coproporphyrin III,24 Hour 204 ug/24 hr (0-74)
== END 2019-03-26 13:01 | disposition home or self-care (01) ==
LOC: ED 06:32 → MS3 08:34
PROVIDERS: Surgery; Admitting Provider Internal Medicine; Emergency Provider Emergency Medicine; Family Provider Family Medicine; PCP Family Medicine; Visit Provider Internal Medicine
PROC: 0DJ08ZZ Inspection of Upper Intestinal Tract, Via Natural or Artificial Opening Endoscopic (ICD-10-PCS; CPT 43235; principal; 2019-03-23 09:45)
DX: R10.84 Generalized abdominal pain (principal); R11.2 Nausea with vomiting, unspecified; E87.2 Acidosis; I73.9 Peripheral vascular disease, unspecified; F12.20 Cannabis dependence, uncomplicated; R73.9 Hyperglycemia, unspecified; K29.70 Gastritis, unspecified, without bleeding; G89.29 Other chronic pain; R09.89 Other specified symptoms and signs involving the circulatory and respiratory systems; R94.31 Abnormal electrocardiogram [ECG] [EKG]; J45.909 Unspecified asthma, uncomplicated; K21.9 Gastro-esophageal reflux disease without esophagitis; R19.7 Diarrhea, unspecified; M19.90 Unspecified osteoarthritis, unspecified site; F41.8 Other specified anxiety disorders; F17.210 Nicotine dependence, cigarettes, uncomplicated; Z87.11 Personal history of peptic ulcer disease; Z79.899 Other long term (current) drug therapy
CPT/HCPCS: 43239; 36415; 71045; 74174; 74177; 80048; 80061; 80076; 80307; 81001; 82150; 82274; 83036; 83605; 83630; 83690; 83735; 84100; 84120; 84478; 84484; 85025; 85027; 85610; 85652; 85730; 86140; 86255; 87086; 87177; 87209; 87493; 87506; 88305; 88342; 93005; 96361; 96365; 96366; 96372; 96375; 96376; 97802; 99218; 99285; J7030; J7040; J7120; Q9967; A4216; G0378; J1610; J2405; J3490